=== PATIENT | male | born 1975 | race Caucasian/White ===

== ENCOUNTER 2017-01-30 22:45 | Observation (INO) | payer OTHER ==
[2017-01-30] MEDS ORDERED: Metoprolol Tartrate 5 MG/5 ML SDV IVPUSH ONE (23:00)
[2017-01-30] MEDS ORDERED: Ticagrelor 90 MG Tab PO ONE (23:00)
[2017-01-30] MEDS ORDERED: Aspirin 81 MG Tab.Chew CHEW ONE (23:00)
[2017-01-30] MEDS ORDERED: Famotidine 20 MG/2 ML SDV IVPUSH ONE (23:00)
--- NOTE | 2017-01-30 23:00 | EDM.PDOC ---
ED HPI GENERAL MEDICAL PROBLEM - General Chief Complaint: Chest Pain Stated Complaint: CP, muscle aches, HTN Time Seen by Provider: 01/30/17 22:55 Source of Information: Reports: Patient, Family (), Old Records ([facility] chart/EMR) History Limitations: Reports: No Limitations - History of Present Illness INITIAL COMMENTS - FREE TEXT/NARRATIVE: The patient was brought to the emergency via private automobile by his for evaluation of 10/10 intermittent sharp retrosternal chest pain without radiation with symptoms lasting only a few seconds and starting at about 16:30 hours afternoon. The patient denies any other chest pain/pressure, heart flutter , dizziness, orthostasis, orthopnea, diaphoresis, paresthesias, or any other anginal-type symptoms, although his blood pressure was elevated at home in the 170s/110s. No history visual changes, diplopia, change in mental status, or other change in neurological status, however he has been having to nonspecific intermittent headaches in the occipital regions bilaterally radiating forward. He has also had problems with bilateral arm paresthesias and myalgias during the last few weeks with patient seen at the [facility] in [place] on 01/28 and prescribed Lyrica at that time, although he just started that at noon today. He has also complained of some nonspecific generalized muscle weakness during the last couple of years. The patient has had an unintentional 20 pounds during the last year with somewhat decreased exercise tolerance since that time. He has also had some intermittent heartburn during the last couple of weeks with possible additional dysphagia with symptoms improved with OTC and acids. No recent history of other abdominal pain, nausea, diarrhea, melena, gross hematochezia, or any food intolerance, including fatty foods, etc.. The patient also denies any recent fever, cough, wheezing, dyspnea, etc.. He has not taken any medications for his symptoms today, however. Onset: Today, Sudden Onset Date: 01/30/17 Onset Time: 16:30 Duration: Getting Worse, Intermittent Location: Reports: Head, Chest, Upper Extremity, Left, Upper Extremity, Right, Lower Extremity, Left, Lower Extremity, Right. Denies: Neck, Back, Radiates to Quality: Reports: Same as Previous Episode, Sharp Severity: Severe Improves with: Reports: None Worsens with: Reports: None Context: Reports: Other (As above) Associated Symptoms: Reports: Chest Pain, Headaches, Weakness. Denies: Confusion, Cough, Diaphoresis, Fever/Chills, Loss of Appetite, Malaise, Nausea/ Vomiting, Seizure, Shortness of Breath, Syncope Treatments WELDER METAL FAB: Reports: Other Medication(s) (As above) Middle Chest Pain Score (Numeric/FACES): 10 - Related Data Allergies Allergy/AdvReac Type Severity Reaction Status Date / Time No Known Allergies Allergy Verified 01/30/17 22:55 Home Meds: Home Meds Escitalopram [Lexapro] 20 mg PO BEDTIME 01/30/17 [History] Pregabalin [Lyrica] 75 mg PO BID 01/30/17 [History] Calcium Carbonate [Tums] 1,000 mg PO Q2HR PRN 01/31/17 [History] Past Medical History HEENT History: Reports: None. Denies: Allergic Rhinitis, Cataract, Glaucoma, Hard of Hearing, Impaired Vision, Macular Degeneration, Retinal Detachment Cardiovascular History: Reports: None. Denies: Afib, Aneurysm, Arrhythmia, Blood Clots/VTE/DVT, CAD, Heart Failure, Heart Murmur, High Cholesterol, Hypertension, SC, Syncope Respiratory History: Reports: Intubation, Previous. Denies: Asthma, COPD, Intubation, Difficult, PE, Pneumothorax, Sleep Apnea, TB Gastrointestinal History: Reports: None, GERD. Denies: Celiac Disease, Cholelithiasis, Chronic Constipation, Chronic Diarrhea, Fecal Incontinence, Gastritis, GI Bleed, Hepatitis, Inflammatory Bowel Disease, Irritable Bowel Syndrome, Jaundice, Pancreatitis, PUD Genitourinary History: Reports: Renal Calculus, Other (See Below). Denies: BPH , Chronic Renal Insuffiency, STD, Urinary Incontinence, UTI, Recurrent Other Genitourinary History: urolithiasis in about 1996 with spontaneous passage Musculoskeletal History: Reports: Arthritis, Back Pain, Chronic, Osteoarthritis. Denies: Amputation, Fracture, Gout, RA, SLE Neurological History: Reports: Neuropathy, Peripheral. Denies: Cerebral Aneurysms, Concussion, CVA, Headaches, Chronic, Head Trauma, Migraines, MS, Parkinson's, Seizure, TIA Psychiatric History: Reports: Anxiety, Depression. Denies: Abuse, Victim of, ADD, ADHD, Addiction, Psych Hospitalization(s), PTSD, Suicide Attempt, Suicidal Ideation Endocrine/Metabolic History: Reports: None. Denies: Diabetes, Type I, Diabetes , Type II, Hypothyroidism, IDDM Hematologic History: Reports: None. Denies: Anemia, Blood Transfusion(s), Iron Deficiency Immunologic History: Reports: None. Denies: AIDS, HIV, SLE Oncologic (Cancer) History: Reports: None. Denies: Basal Cell Carcinoma, Hodgkin's Lymphoma, Leukemia, Lymphoma, Malignant Melanoma, Non-Hodgkin's Lymphoma, Squamous Cell Carcinoma Dermatologic History: Reports: None. Denies: Eczema, Psoriasis - Infectious Disease History Infectious Disease History: Reports: Chicken Pox. Denies: C-Difficile, Measles , Meningitis, Mononucleosis, MRSA, Mumps, Pertussis (Whooping Cough), Rheumatic Fever, Rubella, Scarlet Fever, Shingles, TB, VRE - Past Surgical History Head Surgeries/Procedures: Reports: None HEENT Surgical History: Reports: Oral Surgery, Other (See Below). Denies: Adenoidectomy, Cataract Surgery, Eye Surgery, Laser Surgery, LASIK, Myringotomy w Tube(s), Naso-Sinus Surgery, Tonsillectomy Other HEENT Surgeries/Procedures: My wisdom 2 upper and lower right sided about age 28 Cardiovascular Surgical History: Reports: None. Denies: Varicose Respiratory Surgical History: Reports: None. Denies: Thoracentesis GI Surgical History: Reports: None. Denies: Appendectomy, Cholecystectomy, Colonoscopy, EGD, Hernia, Abdominal, Hernia, Inguinal, Hernia Repair/Other Male Surgical History: Reports: Circumcision, Other (See Below). Denies: Lithotripsy (ESWL), Renal Calculus, Vasectomy Other Male Surgeries/Procedures: Circumcision as an infant Endocrine Surgical History: Reports: None. Denies: Thyroid Biopsy Neurological Surgical History: Reports: Discectomy, Lumbar Spine, Spinal Fusion , Other (See Below). Denies: C-Spine, Laminectomy, Sacral Spine, Vertebroplasty Other Neurological Surgeries/Procedures: L4-L5 discectomy 2009 with subsequent L4-L5 spinal fusion in 2012 Musculoskeletal Surgical History: Reports: Arthroscopic Knee, Other (See Below) . Denies: Carpal Tunnel, Ganglion Cyst, Joint Replacement, ORIF Other Musculoskeletal Surgeries/Procedures:: Right-sided arthroscopic knee meniscal repair in about 2008, open left knee surgery for bursitis in 2009 Oncologic Surgical History: Reports: None Dermatological Surgical History: Reports: None - Past Imaging History Past Imaging History: Reports: CAT Scan (Lumbar spine in about 2009 and 2012), MRI (knees bilaterally in , MRI of the lumbar spine on 08/29/08, MRI/ myelogram and lumbar spine in 2009 and 2012), Ultrasound (Bilateral breast ultrasound on 11/27/06) Social & Family History - Family History HEENT: Reports: None. Denies: Allergic Rhinitis, Glaucoma, Macular Degeneration , Retinal Detachment Cardiac: Reports: Bypass, CAD, Cardiomyopathy, Heart Failure, High Cholesterol, Hypertension, SC, Pacemaker, PVD/COD, Stent, Other (See Below). Denies: Afib, Aneurysm, Arrhythmia, Blood Clots/VTE/DVT, Heart Murmur, Syncope Other Cardiac Family History: Maternal grandfather with fatal SC and CHF in his 70s with multiple previous MIs with history of multiple CABG, paternal grandfather with fatal SC at age 73, maternal grandmother with pacemaker with fatal SC in her 70s, parents with hyperlipidemia and hypertension, mother with history of SC and PTCA/stent in her 50s, father with and carotid occlusive disease requiring surgery however think in his 60s, brother with hypertension, maternal uncle with fatal SC at age 39 Respiratory: Reports: None. Denies: Asthma, COPD, PE, Pneumothorax, Sleep Apnea GI: Reports: None. Denies: Celiac Disease, Cholelithiasis, Colon Polyps, GERD, GI bleed, Inflammatory Bowel Disease, Irritable Bowel Syndrome, PUD : Reports: None. Denies: Dialysis, Renal Calculus, Renal Disease/ Insufficiency OBGYN: Reports: Endometriosis, Other (See Below). Denies: Recurrent Spontaneous Other OBGYN Family History: Mother with endometriosis Musculoskeletal: Reports: Gout, RA, Other (See Below). Denies: SLE Other Musculoskeletal Family History: Paternal uncle with gout, mother with rheumatoid arthritis Neurological: Reports: CVA, Migraines, Other (See Below). Denies: Cerebral Aneurysms, MS, Parkinson's, Seizure, TIA Other Neurological Family History: Mother with migraine headaches, maternal uncle with fatal CVA in his 60s Psychiatric: Reports: None. Denies: Abuse, Victim of, ADD, ADHD, Anxiety, Depression, Psych Hospitalization(s), PTSD, Suicide Attempt Endocrine/Metabolic: Reports: Diabetes, type II, IDDM, Other (See Below). Denies: Diabetes, Type I, Hypothyroidism Other Endocrine/Metabolic Family History: Parents with IDDM Hematologic: Reports: None. Denies: Anemia, SLE, Transfusion Reaction Immunologic: Reports: None. Denies: AIDS, HIV, SLE Dermatologic: Reports: None. Denies: Eczema, Psoriasis Oncologic: Reports: Breast, Lung, Metastatic, Skin, Other (See Below). Denies: Colon, Hodgkin's Lymphoma, Leukemia, Non-Hodgkin's Lymphoma, Prostate Other Oncologic Family History: Paternal grandmother with fatal metastatic lung cancer in her early 70s with history of tobacco use, maternal grandfather with unknown type of skin cancer, paternal aunt with fatal stomach cancer in her 40s , sister with breast cancer in her late 20s, paternal aunt with breast cancer in her 50s, paternal aunt with breast cancer in her 40s - Tobacco Use Smoking Status *Q: Never Smoker Tobacco Use Within Last Twelve Months: No Smoking Cessation Information Provided To Patient: No Second Hand Smoke Exposure: No Second Hand Smoke Education Provided: No - Caffeine Use Caffeine Use: Reports: Coffee (One cup per day), Soda (3 sodas per day). 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 Denies: Fever, Chills, Fatigue, Night Sweats, Diaphoresis, Decreased Appetite, Weight Loss HEENT: Reports: No Symptoms. Denies: Dental Pain, Ear Discharge, Ear Pain, Eye Discharge, Eye Pain, Glasses, Throat Pain, Throat Swelling, Vision Change Respiratory: Reports: No Symptoms. Denies: Shortness of Breath, Wheezing, Cough Cardiovascular: Reports: Chest Pain, Blood Pressure Problem (Elevated at arrival with no previous history of hypertension). Denies: Claudication, Dyspnea on Exertion, Edema, Lightheadedness, Orthopnea, Palpitations, PND, Syncope Endocrine: Reports: No Symptoms. Denies: Fatigue, High Glucose GI/Abdominal: Reports: Abdominal Pain (GERD with dysphagia as above). Denies: Anorexia, Black Stool, Bloody Stool, Constipation, Diarrhea, Decreased Appetite , Distension, Flatus, Hematochezia, Melena, Nausea, Stool Incontinence, Vomiting : Reports: No Symptoms. Denies: Discharge, Dysuria, Flank Pain, Frequency, Hematuria, Incontinence, Pain, Urgency, Urinary Retention Musculoskeletal: Reports: No Symptoms. Denies: Neck Pain, Shoulder Pain, Arm Pain, Back Pain, Leg Pain Skin: Reports: No Symptoms. Denies: Diaphoresis, Bruising, Wound Neurological: Reports: Headache, Numbness, Paresthesia, Tingling, Weakness. Denies: Confusion, Dizziness, Seizure, Tremors, Trouble Speaking, Difficulty Walking, Gait Disturbance Psychiatric: Reports: No Symptoms. Denies: Agitation, Anxiety, Confusion, Depression, Hallucinations, Homicidal Ideation, Suicidal Ideation Hematologic/Lymphatic: Reports: No Symptoms Immunologic: Reports: No Symptoms ED EXAM, GENERAL - Physical Exam Exam: See Below Exam Limited By: No Limitations General Appearance: Alert, WD/WN, No Apparent Distress, Anxious (Moderate) Eye Exam: Bilateral Eye: EOMI, Normal Inspection (No nystagmus), PERRL Ears: Normal External Exam, Normal Canal, Hearing Grossly Normal, Normal TMs Nose: Normal Inspection, Normal Mucosa, No Blood Throat/Mouth: Normal Lips, Normal Teeth, Normal Gums, Normal Oropharynx, Normal Voice, No Airway Compromise, Dysphagia (Possible by his history when taking Brilinta in the ER). No: Perioral Cyanosis Head: Atraumatic, Normocephalic. No: Facial Swelling, Facial Tenderness, Sinus Tenderness Neck: Normal Inspection, Supple, Non-Tender, Full Range of Motion. No: Carotid Bruit, Lymphadenopathy (L), Lymphadenopathy (R), Thyromegaly Respiratory/Chest: No Respiratory Distress, Lungs Clear, Normal Breath Sounds, No Accessory Muscle Use, Chest Non-Tender. No: Pleural Rub, Retractions Cardiovascular: Normal Peripheral Pulses, Regular Rate, Rhythm, No Edema, No Gallop, No JVD, No Murmur, No Rub. No: Gallop/S3, Gallop/S4, Friction Rub Peripheral Pulses: 2+: Radial (L), Radial (R), Dorsalis Pedis (L), Dorsalis Pedis (R) GI/Abdominal: Normal Bowel Sounds, Soft, Non-Tender, No Organomegaly, No Distention, No Abnormal Bruit, No Mass, Pelvis Stable. No: Guarding (Male) Exam: Deferred Rectal (Males) Exam: Deferred Back Exam: Normal Inspection, Full Range of Motion. No: CVA Tenderness (L), CVA Tenderness (R), Muscle Spasm Extremities: Normal Inspection, Normal Range of Motion, Non-Tender, No Pedal Edema, Normal Capillary Refill. No: Kiara's Sign Neurological: Alert, Oriented, CN II-XII Intact, Normal Cognition, Normal Gait, Normal Reflexes (Negative Babinski's), No Motor/Sensory Deficits Psychiatric: Anxious (Moderate), Depressed Mood (Mild adequate eye contact) Skin Exam: Warm, Dry, Intact, Normal Color, No Rash. No: Diaphoretic, Wound/ Incision Lymphatic: No Adenopathy EKG INTERPRETATION EKG Date: 01/30/17 Time: 22:51 Rhythm: NSR Rate (Beats/Min): 81 [place]: Normal (Neutral cardiac axis) P-Wave: Enlarged (Mild diffuse biphasic P waves) QRS: Normal (QRS interval of 0.08 seconds representing repolarization changes) ST-T: Normal QT: Normal MN/PQ Interval: 0.14 seconds with no delta waves noted Comparison: NA - No Prior EKG EKG Interpretation Comments: 1. No acute ischemic changes 2. Probable left atrial enlargement 3. Repolarization changes 4. Short MN interval Course - Vital Signs Last Recorded V/S: Last Vital Signs Temp 36.8 C 01/30/17 22:45 Pulse 82 01/31/17 00:18 Resp 20 01/31/17 00:18 BP 131/83 01/31/17 00:18 Pulse Ox 99 01/31/17 00:18 Vital Signs - 24 hr 01/30/17 01/30/17 01/30/17 22:45 23:00 23:15 Temperature [ 36.8 C Oral] Pulse, Peripheral Pulse, 78 78 82 Peripheral [ Right Brachial] Respiratory 14 15 17 Rate Blood Pressure Blood Pressure 168/120 H 173/113 H 158/108 H [Right Upper Arm] O2 Sat by Pulse 97 99 99 Oximetry O2 Sat by Pulse 99 Oximetry [ Nasal Cannula] 01/30/17 01/30/17 01/30/17 23:16 23:21 23:30 Temperature [ Oral] Pulse, 84 Peripheral Pulse, 82 Peripheral [ Right Brachial] Respiratory 21 H Rate Blood Pressure 158/108 H 158/108 H Blood Pressure 135/99 H [Right Upper Arm] O2 Sat by Pulse 100 Oximetry O2 Sat by Pulse Oximetry [ Nasal Cannula] 01/30/17 01/31/17 01/31/17 23:47 00:00 00:08 Temperature [ Oral] Pulse, 72 Peripheral Pulse, 85 82 Peripheral [ Right Brachial] Respiratory 15 20 Rate Blood Pressure 137/101 H Blood Pressure 133/109 H 137/101 H [Right Upper Arm] O2 Sat by Pulse 99 98 Oximetry O2 Sat by Pulse Oximetry [ Nasal Cannula] 01/31/17 01/31/17 00:09 00:18 Temperature [ Oral] Pulse, Peripheral Pulse, 82 Peripheral [ Right Brachial] Respiratory 20 Rate Blood Pressure 137/101 H Blood Pressure 131/83 [Right Upper Arm] O2 Sat by Pulse 99 Oximetry O2 Sat by Pulse Oximetry [ Nasal Cannula] - Orders/Labs/Meds Orders: Active Orders 24 hr Category Date Time Status Cardiac Monitoring [RC] . DIRECTED Care 01/30/17 23:00 Active EKG Documentation Completion [RC] ASDIRECTED Care 01/30/17 23:00 Active Oxygen Therapy, ED [RC] CONTINUOUS Care 01/30/17 23:00 Active Peripheral IV Care [RC] . DIRECTED Care 01/30/17 23:00 Active Pulse Oximetry [RC] CONTINUOUS Care 01/30/17 23:00 Active Up With Assistance [RC] PFP Care 01/30/17 23:00 Active Vital Signs [RC] PFP Care 01/30/17 23:00 Active Nothing per Oral Now Diet [DIET] Diet 01/30/17 Breakfast Active Chest 1V Frontal [CR] Stat Exams 01/30/17 23:00 Taken Nitroglycerin [Nitrostat] Med 01/30/17 23:04 Stat 0.4 mg SL ONETIME STA Sodium Chloride 0.9% [Saline Flush] Med 01/30/17 23:00 Active 10 ml FLUSH ASDIRECTED PRN Obtain Past Medical Record [OM.PC] Urgent Oth 01/30/17 23:00 Active Peripheral IV Insertion Adult [OM.PC] Stat Oth 01/30/17 23:00 Ordered Resuscitation Status Stat Resus Stat 01/30/17 23:00 Ordered Medication Orders Nitroglycerin (Nitrostat) 0.4 mg SL ONETIME STA Stop: 01/31/17 23:05 Last Admin: 01/30/17 23:21 Dose: 0.4 mg Nitroglycerin (Nitrostat) 0.4 mg SL ONETIME STA Stop: 02/01/17 00:01 Last Admin: 01/31/17 00:09 Dose: 0.4 mg Sodium Chloride (Saline Flush) 10 ml FLUSH ASDIRECTED PRN PRN Reason: Keep Vein Open Last Admin: 01/30/17 23:23 Dose: 10 ml Admin: 01/30/17 23:21 Dose: 10 ml Labs: Laboratory Tests 01/30/17 01/30/17 01/30/17 Range/Units 23:00 23:00 23:00 WBC 9.7 (4.0-10.2) K/uL RBC 4.86 (4.33-5.41) M/uL Hgb 15.5 (13.1-16.8) g/dL Hct 43.5 (39.0-49.0) % MCV 89.5 (84.0-98.0) fL MCH 31.9 (28.2-33.3) pg MCHC 35.6 (31.7-36.0) g/dL RDW 12.5 (11.2-14.1) % Plt Count 298 (150-350) K/uL Neut % (Auto) 48.0 (45.0-80.0) % Lymph % (Auto) 37.8 (10.0-50.0) % [place] % (Auto) 10.7 (2.0-14.0) % Eos % (Auto) 3.0 (0.0-5.0) % Baso % (Auto) 0.5 (0.0-2.0) % Neut # (Auto) 4.67 (1.40-7.00) K/uL Lymph # (Auto) 3.67 H (0.50-3.50) K/uL [place] # (Auto) 1.04 H (0.00-1.00) K/uL Eos # (Auto) 0.29 (0.00-0.50) K/uL Baso # (Auto) 0.05 (0.00-0.20) K/uL PT 10.5 (9.8-11.7) SEC INR 1.0 APTT 26.4 (23.5-30.0) SEC D-Dimer, Quantitative < 100 (0-400) ng/mL Sodium (136-145) mmol/L Potassium (3.5-5.1) mmol/L Chloride (98-107) mmol/L Carbon Dioxide (21.0-32.0) mmol/L BUN (7-18) mg/dL Creatinine (0.51-1.17) mg/dL Est Cr Clr Drug Dosing mL/min Estimated GFR (MDRD) mL/min Glucose (74-106) mg/dL Lactic Acid (0.4-2.0) mmol/L Uric Acid (2.6-7.2) mg/dL Calcium (8.5-10.1) mg/dL Magnesium (1.8-2.4) mg/dL Total Bilirubin (0.2-1.0) mg/dL AST (15-37) U/L ALT (12-78) U/L Alkaline Phosphatase (46-116) IU/L Creatine Kinase (26-308) U/L Creatine Kinase Index (0.0-2.5) % CK-MB (CK-2) (0.00-3.60) ng/mL Troponin I (0.000-0.056) ng/mL [id number] Pept (0-125) pg/mL Total Protein (6.4-8.2) g/dL Albumin (3.4-5.0) g/dL TSH, Ultra Sensitive (0.358-3.740) mIU/mL 01/30/17 01/30/17 Range/Units 23:00 23:00 WBC (4.0-10.2) K/uL RBC (4.33-5.41) M/uL Hgb (13.1-16.8) g/dL Hct (39.0-49.0) % MCV (84.0-98.0) fL MCH (28.2-33.3) pg MCHC (31.7-36.0) g/dL RDW (11.2-14.1) % Plt Count (150-350) K/uL Neut % (Auto) (45.0-80.0) % Lymph % (Auto) (10.0-50.0) % [place] % (Auto) (2.0-14.0) % Eos % (Auto) (0.0-5.0) % Baso % (Auto) (0.0-2.0) % Neut # (Auto) (1.40-7.00) K/uL Lymph # (Auto) (0.50-3.50) K/uL [place] # (Auto) (0.00-1.00) K/uL Eos # (Auto) (0.00-0.50) K/uL Baso # (Auto) (0.00-0.20) K/uL PT (9.8-11.7) SEC INR APTT (23.5-30.0) SEC D-Dimer, Quantitative (0-400) ng/mL Sodium 143 (136-145) mmol/L Potassium 3.8 (3.5-5.1) mmol/L Chloride 106 (98-107) mmol/L Carbon Dioxide 27.5 (21.0-32.0) mmol/L BUN 12 (7-18) mg/dL Creatinine 0.95 (0.51-1.17) mg/dL Est Cr Clr Drug Dosing 76.63 mL/min Estimated GFR (MDRD) > 60 mL/min Glucose 134 H (74-106) mg/dL Lactic Acid 1.6 (0.4-2.0) mmol/L Uric Acid 6.3 (2.6-7.2) mg/dL Calcium 9.0 (8.5-10.1) mg/dL Magnesium 1.8 (1.8-2.4) mg/dL Total Bilirubin 0.3 (0.2-1.0) mg/dL AST 22 (15-37) U/L ALT 58 (12-78) U/L Alkaline Phosphatase 82 (46-116) IU/L Creatine Kinase 93 (26-308) U/L Creatine Kinase Index 0.5 (0.0-2.5) % CK-MB (CK-2) 0.50 (0.00-3.60) ng/mL Troponin I 0.000 (0.000-0.056) ng/mL Sax-P-Todhkaanzlm Pept 24 (0-125) pg/mL Total Protein 7.9 (6.4-8.2) g/dL Albumin 4.1 (3.4-5.0) g/dL TSH, Ultra Sensitive 4.217 H (0.358-3.740) mIU/mL Meds: Medications Generic Name Dose Route Start Last Admin Trade Name Mar PRN Reason Stop Dose Admin Nitroglycerin 0.4 mg 01/30/17 23:04 01/30/17 23:21 Nitrostat SL 01/31/17 23:05 0.4 mg ONETIME STA Administration Nitroglycerin 0.4 mg 01/31/17 00:00 01/31/17 00:09 Nitrostat SL 02/01/17 00:01 0.4 mg ONETIME STA Administration Sodium Chloride 10 ml 01/30/17 23:00 01/30/17 23:23 Saline Flush FLUSH 10 ml ASDIRECTED PRN Administration Keep Vein Open Discontinued Medications Generic Name Dose Route Start Last Admin Trade Name Mar PRN Reason Stop Dose Admin Aspirin 324 mg 01/30/17 23:00 01/30/17 23:18 Aspirin CHEW 01/30/17 23:01 324 mg ONETIME ONE Administration Diazepam 2.5 mg 01/30/17 23:04 01/30/17 23:24 Valium IVPUSH 01/30/17 23:05 2.5 mg ONETIME ONE Administration Famotidine 40 mg 01/30/17 23:00 01/30/17 23:22 Pepcid IVPUSH 01/30/17 23:01 40 mg ONETIME ONE Administration Metoprolol Tartrate 2.5 mg 01/30/17 23:00 01/30/17 23:16 Lopressor IVPUSH 01/30/17 23:01 2.5 mg ONETIME ONE Administration Metoprolol Tartrate 25 mg 01/31/17 00:00 01/31/17 00:08 Lopressor PO 01/31/17 00:01 25 mg ONETIME ONE Administration Ticagrelor 180 mg 01/30/17 23:00 01/30/17 23:19 Brilinta PO 01/30/17 23:01 180 mg ONETIME ONE Administration - Radiology Interpretation Free Text/Narrative:: cardiac monitor technician shows normal sinus rhythm with heart rate in the 80s with no ectopy or arrhythmia Chest x-ray, portable, shows evidence of mild pulmonary obstructive disease and probable pulmonary hypertension versus mild centralized CHF. No pulmonary infiltrates, pneumothorax, etc.. Mild cardiomegaly also present Departure - Departure Time of Disposition: 00:20 Disposition: Refer to Observation Condition: Good Clinical Impression: Bilateral headaches, Mixed anxiety depressive disorder, COPD (chronic obstructive pulmonary disease) Chest pain Qualifiers: Chest pain type: unspecified Qualified Code(s): R07.9 - Chest pain, unspecified Hypertension Qualifiers: Hypertension type: essential hypertension Qualified Code(s): I10 - Essential ( primary) hypertension GERD (gastroesophageal reflux disease) Qualifiers: Esophagitis presence: without esophagitis Qualified Code(s): K21.9 - Gastro- esophageal reflux disease without esophagitis Dysphagia Qualifiers: Dysphagia type: oropharyngeal phase Qualified Code(s): R13.12 - Dysphagia, oropharyngeal phase Peripheral neuropathy Qualifiers: Peripheral neuropathy type: polyneuropathy, other Qualified Code(s): G62.89 - Other specified polyneuropathies Hypothyroidism Qualifiers: Hypothyroidism type: acquired Qualified Code(s): E03.9 - Hypothyroidism, unspecified - Problem List & Annotations (1) Chest pain SNOMED Code(s): 52920590 Code(s): R07.9 - CHEST PAIN, UNSPECIFIED Status: Acute Priority: High Current Visit: Yes Onset Date: 01/31/17 Annotation/Comment:: Chest pain protocol initiated immediately upon arrival to the patient in the emergency room. No chest pain at time of admission. EKG and cardiac enzymes to be repeated in the a.m. Recommend additional serial cardiac enzymes tomorrow with probable subsequent hospital discharge. Patient should have a Cardiolite stress test on an outpatient basis secondary to his multiple cardiac risk factors with activity restrictions until his cardiac status has been determined. Cardiology consultation depending on his clinical course. Lipid panel and glycosylated hemoglobin to be conducted in the a.m. with mildly elevated nonfasting glucose today Qualifiers: Chest pain type: unspecified Qualified Code(s): R07.9 - Chest pain, unspecified (2) Hypertension SNOMED Code(s): 13640381 Code(s): I10 - ESSENTIAL (PRIMARY) HYPERTENSION Status: Acute Priority: High Current Visit: Yes Onset Date: 01/31/17 Annotation/Comment:: Newly diagnosed with somewhat refractory blood pressure during emergency room evaluation. Medical therapy recommended at discharge with initiation of Lopressor for the time being. Sublingual nitroglycerin tablets were needed to better control his blood pressure with no anginal complaints during his ER care. He did receive both IV and oral Lopressor in the emergency room Qualifiers: Hypertension type: essential hypertension Qualified Code(s): I10 - Essential (primary) hypertension (3) GERD (gastroesophageal reflux disease) SNOMED Code(s): 095108104 Code(s): K21.9 - GASTRO-ESOPHAGEAL REFLUX DISEASE WITHOUT ESOPHAGITIS Status: Chronic Priority: Medium Current Visit: Yes Annotation/Comment:: Recent GERD as above with additional secondary dysphagia. He does IV Pepcid given in the emergency room as GI prophylaxis with consideration of regularly scheduled Pepcid discharge. Patient should also have an EGD with probable esophageal dilatation once his cardiac status has been determined Qualifiers: Esophagitis presence: without esophagitis Qualified Code(s): K21.9 - Gastro -esophageal reflux disease without esophagitis (4) Bilateral headaches SNOMED Code(s): 213516738 Code(s): R51 - HEADACHE Status: Chronic Priority: High Current Visit: Yes Annotation/Comment:: Note new nonspecific headaches during the last few weeks with additional nonspecific generalized muscle weakness. Consider CT of the head when necessary depending on his clinical course. Otherwise recommend MRI of the brain to rule out possible MS. No neurological deficits during examination in the emergency room (5) Dysphagia SNOMED Code(s): 32652962, 559267621 Code(s): R13.10 - DYSPHAGIA, UNSPECIFIED Status: Chronic Priority: Medium Current Visit: Yes Annotation/Comment:: As above Qualifiers: Dysphagia type: oropharyngeal phase Qualified Code(s): R13.12 - Dysphagia, oropharyngeal phase (6) Hypothyroidism SNOMED Code(s): 65930233 Code(s): E03.9 - HYPOTHYROIDISM, UNSPECIFIED Status: Acute Priority: Medium Current Visit: Yes Onset Date: 01/31/17 Annotation/Comment:: Newly diagnosed borderline hypothyroidism. Low-dose L thyroxine to be initiated tomorrow with recommended repeat TSH in about 4 weeks Qualifiers: Hypothyroidism type: acquired Qualified Code(s): E03.9 - Hypothyroidism, unspecified (7) Mixed anxiety depressive disorder SNOMED Code(s): 049337513 Code(s): F41.8 - OTHER SPECIFIED ANXIETY DISORDERS Status: Chronic Priority: Medium Current Visit: Yes Annotation/Comment:: IV diazepam given in the emergency room. He has been noncompliant with his Lexapro therapy with medication compliance encouraged. He has also been having problems with some chronic insomnia during the last week. Continue to observe closely by his regular provider (8) Peripheral neuropathy SNOMED Code(s): 317719571 Code(s): G62.9 - POLYNEUROPATHY, UNSPECIFIED Status: Chronic Priority: High Current Visit: Yes Annotation/Comment:: The patient just started Lyrica today. Continue therapy for now with close observation by his regular provider Qualifiers: Peripheral neuropathy type: polyneuropathy, other Qualified Code(s): G62.89 - Other specified polyneuropathies (9) COPD (chronic obstructive pulmonary disease) SNOMED Code(s): 14334512 Code(s): J44.9 - CHRONIC OBSTRUCTIVE PULMONARY DISEASE, UNSPECIFIED Status : Chronic Priority: Medium Current Visit: Yes Onset Date: ~01/31/17 Annotation/Comment:: Suspected COPD by today's chest x-ray. Consider PFTs on an outpatient basis Qualifiers: COPD type: emphysema Emphysema type: panlobular Qualified Code(s): J43.1 - Panlobular emphysema (10) Osteoarthritis SNOMED Code(s): 400211359 Code(s): M19.90 - UNSPECIFIED OSTEOARTHRITIS, UNSPECIFIED SITE Status: Chronic Priority: Medium Current Visit: Yes Annotation/Comment:: Otherwise stable by history Qualifiers: Osteoarthritis location: multiple joints Osteoarthritis type: primary Qualified Code(s): M15.0 - Primary generalized (osteo)arthritis - Problem List Review Problem List Initiated/Reviewed/Updated: Yes - My Orders Last 24 Hours: My Active Orders 01/30/17 23:00 Cardiac Monitoring [RC] . DIRECTED EKG Documentation Completion [RC] ASDIRECTED Oxygen Therapy, ED [RC] CONTINUOUS Peripheral IV Care [RC] . DIRECTED Pulse Oximetry [RC] CONTINUOUS Up With Assistance [RC] PFP Vital Signs [RC] PFP Chest 1V Frontal [CR] Stat Sodium Chloride 0.9% [Saline Flush] 10 ml FLUSH ASDIRECTED PRN Obtain Past Medical Record [OM.PC] Urgent Peripheral IV Insertion Adult [OM.PC] Stat Resuscitation Status Stat 01/30/17 23:04 Nitroglycerin [Nitrostat] 0.4 mg SL ONETIME STA 01/30/17 Breakfast Nothing per Oral Now Diet [DIET] - Assessment/Plan Admission H&P: Please use this note as an admission H&P Last 24 Hours: My Active Orders 01/30/17 23:00 Cardiac Monitoring [RC] . DIRECTED EKG Documentation Completion [RC] ASDIRECTED Oxygen Therapy, ED [RC] CONTINUOUS Peripheral IV Care [RC] . DIRECTED Pulse Oximetry [RC] CONTINUOUS Up With Assistance [RC] PFP Vital Signs [RC] PFP Chest 1V Frontal [CR] Stat Sodium Chloride 0.9% [Saline Flush] 10 ml FLUSH ASDIRECTED PRN Obtain Past Medical Record [OM.PC] Urgent Peripheral IV Insertion Adult [OM.PC] Stat Resuscitation Status Stat 01/30/17 23:04 Nitroglycerin [Nitrostat] 0.4 mg SL ONETIME STA 01/30/17 Breakfast Nothing per Oral Now Diet [DIET] Assessment:: As above Plan: As above. Extensive precautions were given to the patient and his , who are in agreement with the treatment plan. [facility] physician assumes care in the a.m.. The patient's condition is stable enough for observation status and general supervision.
[2017-01-30] MEDS ORDERED: Nitroglycerin 0.4 MG Tab.SL SL STA (23:04)
[2017-01-30] MEDS: Sodium Chloride 0.9% 10 ML Syringe FLUSH PRN ×2 (23:21→23:23)
[2017-01-30 23:31] LABS: CHLORIDE,CL 106 mmol/L (98-107); SODIUM,NA 143 mmol/L (136-145)
[2017-01-31] MEDS ORDERED: Nitroglycerin 0.4 MG Tab.SL SL STA
[2017-01-31] MEDS ORDERED: Metoprolol Tartrate 50 MG Tab PO ONE
[2017-01-31] MEDS ORDERED: Escitalopram 20 MG Tab PO SCH (00:25)
[2017-01-31] MEDS ORDERED: Temazepam 15 MG Cap PO PRN (00:26)
[2017-01-31] MEDS ORDERED: Acetaminophen 325 MG Tab PO PRN (00:26)
[2017-01-31] MEDS ORDERED: Sodium Chloride 0.9% 10 ML Syringe FLUSH PRN (00:26)
[2017-01-31] MEDS ORDERED: Levothyroxine 50 MCG Tab PO SCH (07:30)
[2017-01-31] MEDS ORDERED: Pregabalin 75 MG Cap PO SCH (08:00)
[2017-01-31] MEDS ORDERED: Metoprolol Tartrate 50 MG Tab PO SCH (08:00)
[2017-01-31] MEDS ORDERED: Metoprolol Tartrate 25 MG Tab PO ONE (11:13)
[2017-01-31 14:11] VITALS: BP 149/85
--- NOTE | 2017-01-31 15:07 | PCM.DCSUM1 ---
Discharge Summary - Discharge Data Discharge Date: 01/31/17 Discharge Disposition: Home, Self-Care 01 Condition: Good - Discharge Diagnosis/Problem(s) (1) Chest pain SNOMED Code(s): 62465971 ICD Code: R07.9 - CHEST PAIN, UNSPECIFIED Status: Acute Priority: High Current Visit: Yes Onset Date: 01/31/17 Problem Details: Cardiolite stress test scheduled for next . EKG and cardiac labs were unremarkable for [facility]/ cardiac injury. Qualifiers: Chest pain type: unspecified Qualified Code(s): R07.9 - Chest pain, unspecified (2) Hypertension SNOMED Code(s): 74433852 ICD Code: I10 - ESSENTIAL (PRIMARY) HYPERTENSION Status: Acute Priority: High Current Visit: Yes Onset Date: 01/31/17 Problem Details: Newly diagnosed with somewhat refractory blood pressure during emergency room evaluation. Medical therapy recommended at discharge with initiation of Lopressor for the time being. Sublingual nitroglycerin tablets were needed to better control his blood pressure with no anginal complaints during his ER care. He did receive both IV and oral Lopressor in the emergency room Qualifiers: Hypertension type: essential hypertension Qualified Code(s): I10 - Essential (primary) hypertension (3) Hypothyroidism SNOMED Code(s): 24589001 ICD Code: E03.9 - HYPOTHYROIDISM, UNSPECIFIED Status: Acute Priority: Medium Current Visit: Yes Onset Date: 01/31/17 Problem Details: Newly diagnosed borderline hypothyroidism. Low-dose L thyroxine to be initiated tomorrow with recommended repeat TSH in about 4 weeks Qualifiers: Hypothyroidism type: acquired Qualified Code(s): E03.9 - Hypothyroidism, unspecified (4) Bilateral headaches SNOMED Code(s): 504692065 ICD Code: R51 - HEADACHE Status: Chronic Priority: High Current Visit: Yes Problem Details: Note new nonspecific headaches during the last few weeks with additional nonspecific generalized muscle weakness. Consider CT of the head when necessary depending on his clinical course. Otherwise recommend MRI of the brain to rule out possible MS. No neurological deficits during examination in the emergency room (5) COPD (chronic obstructive pulmonary disease) SNOMED Code(s): 68558006 ICD Code: J44.9 - CHRONIC OBSTRUCTIVE PULMONARY DISEASE, UNSPECIFIED Status : Chronic Priority: Medium Current Visit: Yes Onset Date: ~01/31/17 Problem Details: Suspected COPD by today's chest x-ray. Consider PFTs on an outpatient basis Qualifiers: COPD type: emphysema Emphysema type: panlobular Qualified Code(s): J43.1 - Panlobular emphysema (6) Dysphagia SNOMED Code(s): 86864943, 001507992 ICD Code: R13.10 - DYSPHAGIA, UNSPECIFIED Status: Chronic Priority: Medium Current Visit: Yes Problem Details: As above Qualifiers: Dysphagia type: oropharyngeal phase Qualified Code(s): R13.12 - Dysphagia, oropharyngeal phase (7) GERD (gastroesophageal reflux disease) SNOMED Code(s): 932828826 ICD Code: K21.9 - GASTRO-ESOPHAGEAL REFLUX DISEASE WITHOUT ESOPHAGITIS Status: Chronic Priority: Medium Current Visit: Yes Problem Details: Recent GERD as above with additional secondary dysphagia. He does IV Pepcid given in the emergency room as GI prophylaxis with consideration of regularly scheduled Pepcid discharge. Patient should also have an EGD with probable esophageal dilatation once his cardiac status has been determined Qualifiers: Esophagitis presence: without esophagitis Qualified Code(s): K21.9 - Gastro -esophageal reflux disease without esophagitis (8) Mixed anxiety depressive disorder SNOMED Code(s): 326493565 ICD Code: F41.8 - OTHER SPECIFIED ANXIETY DISORDERS Status: Chronic Priority: Medium Current Visit: Yes Problem Details: IV diazepam given in the emergency room. He has been noncompliant with his Lexapro therapy with medication compliance encouraged. He has also been having problems with some chronic insomnia during the last week. Continue to observe closely by his regular provider (9) Osteoarthritis SNOMED Code(s): 325799450 ICD Code: M19.90 - UNSPECIFIED OSTEOARTHRITIS, UNSPECIFIED SITE Status: Chronic Priority: Medium Current Visit: Yes Problem Details: Otherwise stable by history Qualifiers: Osteoarthritis location: multiple joints Osteoarthritis type: primary Qualified Code(s): M15.0 - Primary generalized (osteo)arthritis (10) Peripheral neuropathy SNOMED Code(s): 762243004 ICD Code: G62.9 - POLYNEUROPATHY, UNSPECIFIED Status: Chronic Priority: High Current Visit: Yes Problem Details: The patient just started Lyrica today. Continue therapy for now with close observation by his regular provider Qualifiers: Peripheral neuropathy type: polyneuropathy, other Qualified Code(s): G62.89 - Other specified polyneuropathies - Patient Summary/Data Recommended Follow-up Testing/Procedures: Upper endoscopy to look at esophagus/stomach given complaints of heartburn and episodic difficulty swallowing. Cardiac stress test: schedule for next Friday here at [facility]. Follow up with primary to discuss of brain MRI appropriate and also for follow up of hypothyroidism. Hospital Course: Patient admitted for observation after initially being evaluated in the ER. Serial troponins and CKMB performed. Unremarkable. Repeat EKG showed NSR. Chest pain remained resolved. Continued to have generalized aches arms/legs which have been present for several weeks. Patient has chronic issues with soreness due to arthritis. He quit drinking soda around the same time the aches escalated and wondered if that may have been connected. Uncertain as to specific cause at this time. Tick panel added to labs. Patient will be discharged home. He was encouraged to continue the Lyrica as well as Lexapro. Will add Metoprolol , Pepcid, and thyroid replacement to regimen at time of discharge. Patient is to follow up with primary provider within the next week or two. At that time he can review his visit here with his primary, and also discuss possible other studies, such as MRI of brain, EGD for dysphagia. He will need follow up studies for thyroid replacement. Stress test scheduled for next . Extensive amount of time spent visiting with patient and discussing lifestyle change strategies for diet and activity that may help address his multiple issues. - Patient Instructions Diet: Heart Healthy Diet Activity: As Tolerated Driving: May Drive Today Showering/Bathing: May Shower - Discharge Plan Home Medications: Home Meds Escitalopram [Lexapro] 20 mg PO BEDTIME 01/30/17 [History] Pregabalin [Lyrica] 75 mg PO BID 01/30/17 [History] Calcium Carbonate [Tums] 1,000 mg PO Q2HR PRN 01/31/17 [History] Patient Handouts: Aspirin, ASA chewable tablets, Exercise Stress Electrocardiogram, [id number], Metoprolol tablets, Ticagrelor oral tablet, Diazepam injection, Famotidine injection, Nonspecific Chest Pain, [id number], Hypertension, [id number], Nitroglycerin sublingual tablets, Metoprolol injection Forms: ED Department Discharge Referrals: Sander Greenberg PA [Primary Care Provider] - - Discharge Summary/Plan Comment DC Time >30 min.: No - General Info Date of Service: 01/31/17 Admission Dx/Problem (Free Text: Chest pain rule out. Arthralgias. Functional Status: Reports: Pain Controlled, Tolerating Diet, Ambulating, Urinating. Denies: New Symptoms - Review of Systems General: Reports: No Symptoms HEENT: Reports: No Symptoms Pulmonary: Reports: No Symptoms. Denies: Shortness of Breath, Cough, Sputum, Hemoptysis, Wheezing Cardiovascular: Reports: No Symptoms. Denies: Chest Pain, Palpitations Gastrointestinal: Reports: No Symptoms Genitourinary: Reports: No Symptoms Musculoskeletal: Reports: Joint Swelling (Patient feels that his hands are a little puffy. ), Other (generalized aches arms/legs. ) Skin: Reports: No Symptoms Neurological: Reports: Numbness (Has chronic peripheral paresthesias. ). Denies : Headache Psychiatric: Reports: No Symptoms - Patient Data Vitals - Most Recent: Last Vital Signs Temp 36.7 C 01/31/17 14:00 Pulse 69 01/31/17 14:00 Resp 16 01/31/17 14:00 BP 149/85 H 01/31/17 14:00 Pulse Ox 97 01/31/17 10:05 Weight - Most Recent: 82.735 kg I&O - Last 24 hours: Intake & Output 01/31/17 01/31/17 01/31/17 06:59 14:59 22:59 Intake Total 0 420 Output Total 700 Balance -700 420 Lab Results - Last 24 hrs: Laboratory Results - last 24 hr 01/31/17 01/31/17 01/31/17 Range/Units 06:28 06:28 10:55 Hemoglobin A1c 5.4 (4.3-5.7) % Creatine Kinase 77 80 (26-308) U/L Creatine Kinase Index 0.4 0.5 (0.0-2.5) % CK-MB (CK-2) 0.30 0.40 (0.00-3.60) ng/mL Troponin I 0.000 0.000 (0.000-0.056) ng/mL Triglycerides 267 H (30-150) mg/dL Cholesterol 180 (100-200) mg/dL LDL Cholesterol, Calc 92 (0-100) mg/dL HDL Cholesterol 35 L (40-60) mg/dL [facility] Results - Last 24 hrs: Microbiology 01/31/17 11:24 Stool Occult Blood ([facility]) - Final Stool / Feces NEGATIVE OCCULT BLOOD Med Orders - Current: Current Medications Acetaminophen (Tylenol) 650 mg PO Q4H PRN PRN Reason: Pain Last Admin: 01/31/17 00:47 Dose: 650 mg Escitalopram Oxalate (Lexapro) 20 mg PO BEDTIME [facility] Last Admin: 01/31/17 00:48 Dose: 20 mg Levothyroxine Sodium (Synthroid) 50 mcg PO ACBREAKFAST [facility] Last Admin: 01/31/17 08:26 Dose: 50 mcg Metoprolol Tartrate (Lopressor) 25 mg PO BID [facility] Last Admin: 01/31/17 08:26 Dose: 25 mg Nitroglycerin (Nitrostat) 0.4 mg SL ONETIME STA Stop: 01/31/17 23:05 Last Admin: 01/30/17 23:21 Dose: 0.4 mg Nitroglycerin (Nitrostat) 0.4 mg SL ONETIME STA Stop: 02/01/17 00:01 Last Admin: 01/31/17 00:09 Dose: 0.4 mg Pregabalin (Lyrica) 75 mg PO BID [facility] Last Admin: 01/31/17 08:27 Dose: 75 mg Sodium Chloride (Saline Flush) 10 ml FLUSH ASDIRECTED PRN PRN Reason: Keep Vein Open Last Admin: 01/30/17 23:23 Dose: 10 ml Sodium Chloride (Saline Flush) 10 ml FLUSH Q12HR PRN PRN Reason: Keep Vein Open Temazepam (Restoril) 15 mg PO BEDTIME PRN PRN Reason: Insomnia Last Admin: 01/31/17 00:48 Dose: 15 mg Discontinued Medications Aspirin (Aspirin) 324 mg CHEW ONETIME ONE Stop: 01/30/17 23:01 Last Admin: 01/30/17 23:18 Dose: 324 mg Diazepam (Valium) 2.5 mg IVPUSH ONETIME ONE Stop: 01/30/17 23:05 Last Admin: 01/30/17 23:24 Dose: 2.5 mg Famotidine (Pepcid) 40 mg IVPUSH ONETIME ONE Stop: 01/30/17 23:01 Last Admin: 01/30/17 23:22 Dose: 40 mg Metoprolol Tartrate (Lopressor) 2.5 mg IVPUSH ONETIME ONE Stop: 01/30/17 23:01 Last Admin: 01/30/17 23:16 Dose: 2.5 mg Metoprolol Tartrate (Lopressor) 25 mg PO ONETIME ONE Stop: 01/31/17 00:01 Last Admin: 01/31/17 00:08 Dose: 25 mg Metoprolol Tartrate (Lopressor) 25 mg PO ONETIME ONE Stop: 01/31/17 11:14 Last Admin: 01/31/17 11:33 Dose: 25 mg Ticagrelor (Brilinta) 180 mg PO ONETIME ONE Stop: 01/30/17 23:01 Last Admin: 01/30/17 23:19 Dose: 180 mg - Exam Quality Assessment: Denies: Supplemental Oxygen General: Reports: Alert, Oriented, Cooperative, No Acute Distress HEENT: Reports: Pupils Equal, Pupils Reactive, EOMI, Mucous Membr. Moist/[place] Neck: Reports: Supple Lungs: Reports: Clear to Auscultation, Normal Respiratory Effort Cardiovascular: Reports: Regular Rate, Regular Rhythm GI/Abdominal Exam: Normal Bowel Sounds, Soft, Non-Tender, No Distention, No Abnormal Bruit (Male) Exam: Deferred Rectal (Males) Exam: Deferred Back Exam: Reports: Normal Inspection Extremities: Normal Inspection, Normal Range of Motion, Non-Tender, No Pedal Edema, Normal Capillary Refill Skin: Reports: Warm, Dry Neurological: Reports: No New Focal Deficit Psy/Mental Status: Reports: Alert, Normal Affect, Normal Mood EKG INTERPRETATION EKG Date: 01/31/17 Time: 07:39 Rhythm: NSR Rate (Beats/Min): 63 [place]: Normal P-Wave: Present QRS: Normal ST-T: Normal QT: Normal Comparison: No Change *Q Meaningful Use (DIS) - VTE *Q VTE Criteria *Q: - Stroke *Q Stroke Criteria *Q: - AMI *Q AMI Criteria *Q:
[2017-01-31] MEDS ORDERED: traMADol 50 MG Tab PO ONE (15:09)
== END 2017-01-31 16:10 | disposition home or self-care (01) ==
LOC: LL.ED 22:45 → LL.MS 23:55 → MERGE 23:55
PROVIDERS: ADMIT Family Medicine; ATTEND Emergency Medicine
DX: R07.9 Chest pain, unspecified (principal); I10 Essential (primary) hypertension; E03.9 Hypothyroidism, unspecified; R51 Headache; J43.1 Panlobular emphysema; R13.12 Dysphagia, oropharyngeal phase; K21.9 Gastro-esophageal reflux disease without esophagitis; F41.8 Other specified anxiety disorders; M15.0 Primary generalized (osteo)arthritis; G62.89 Other specified polyneuropathies; Z79.899 Other long term (current) drug therapy; Z98.890 Other specified postprocedural states
CPT/HCPCS: 36415; 71010; 80053; 80061; 82272; 82550; 82553; 83036; 83605; 83735; 83880; 84443; 84484; 84550; 85025; 85379; 85610; 85730; 86618; 87338; 93005; 96374; 96375; 99285; A9270; J3360; J7050; G0378; J3490; S0028

== ENCOUNTER 2019-12-27 23:02 | Observation (INO) | payer OTHER ==
[2019-12-27] MEDS ORDERED: Ketorolac 30 MG/ML SDV IVPUSH ONE (23:08)
[2019-12-27] MEDS ORDERED: Ondansetron 4 MG/2 ML SDV IVPUSH ONE (23:09)
[2019-12-27] MEDS ORDERED: fentaNYL 100 MCG/2 ML SDV IVPUSH ONE (23:09)
--- NOTE | 2019-12-27 23:14 | EDM.PDOC ---
ED HPI GENERAL MEDICAL PROBLEM - General Chief Complaint: General Stated Complaint: L FLANK PAIN Time Seen by Provider: 12/27/19 23:08 Source of Information: Reports: Patient History Limitations: Reports: No Limitations - History of Present Illness INITIAL COMMENTS - FREE TEXT/NARRATIVE: Sudden left flank pain that started earlier this evening. Suddenly worsened. Pain waxes and wanes, sometimes feels discomfort in left anterior abdomen. Has had kidney stone in past but this pain pattern feels different. No hematuria. No urinary changes. No fever/chills/nausea/emesis/bowel changes. No other acute changes. No recent injuries/heavy lifting. Hx chronic back pain/previous fractured vertebrae but this is not usual pattern for his pain. Treatments [employer]: Reports: NSAIDS Left Upper Back Pain Score (Numeric/FACES): 9 - Related Data Allergies Allergy/AdvReac Type Severity Reaction Status Date / Time oxycodone AdvReac Nausea and Verified 12/27/19 23:52 Vomiting Home Meds: Home Meds . [No Known Home Meds] 12/28/19 [History] Past Medical History HEENT History: Reports: None Cardiovascular History: Reports: None Respiratory History: Reports: Intubation, Previous Gastrointestinal History: Reports: GERD, None Genitourinary History: Reports: Other (See Below), Renal Calculus Other Genitourinary History: urolithiasis in about 1996 with spontaneous passage Musculoskeletal History: Reports: Arthritis, Back Pain, Chronic, Osteoarthritis Neurological History: Reports: Neuropathy, Peripheral Psychiatric History: Reports: Anxiety, Depression Endocrine/Metabolic History: Reports: None Hematologic History: Reports: None Immunologic History: Reports: None Oncologic (Cancer) History: Reports: None Dermatologic History: Reports: None - Infectious Disease History Infectious Disease History: Reports: Chicken Pox - Past Surgical History HEENT Surgical History: Reports: Other (See Below), Oral Surgery Neurological Surgical History: Reports: Discectomy, Lumbar Spine, Other (See Below), Spinal Fusion - Past Imaging History Past Imaging History: Reports: CAT Scan (Lumbar spine in about 2009 and 2012), MRI (knees bilaterally in , MRI of the lumbar spine on 08/29/08, MRI/myelogram and lumbar spine in 2009 and 2012), Ultrasound (Bilateral breast ultrasound on 11/27/06) Social & Family History - Family History HEENT: Reports: None Cardiac: Reports: Bypass, CAD, Cardiomyopathy, High Cholesterol, Heart Failure, Hypertension, IL, Other (See Below), Pacemaker, PVD/COD, Stent Other Cardiac Family History: Maternal grandfather with fatal IL and CHF in his 70s with multiple previous MIs with history of multiple CABG, paternal grandfather with fatal IL at age 73, maternal grandmother with pacemaker with fatal IL in her 70s, parents with hyperlipidemia and hypertension, mother with history of IL and PTCA/stent in her 50s, father with and carotid occlusive disease requiring surgery however think in his 60s, brother with hypertension, maternal uncle with fatal IL at age 39 Respiratory: Reports: None GI: Reports: None : Reports: None OBGYN: Reports: Endometriosis, Other (See Below) Other OBGYN Family History: Mother with endometriosis Musculoskeletal: Reports: Gout, Other (See Below), RA Other Musculoskeletal Family History: Paternal uncle with gout, mother with rheumatoid arthritis Neurological: Reports: CVA, Migraines, Other (See Below) Other Neurological Family History: Mother with migraine headaches, maternal uncle with fatal CVA in his 60s Psychiatric: Reports: None Endocrine/Metabolic: Reports: Diabetes, type II, IDDM, Other (See Below) Other Endocrine/Metabolic Family History: Parents with IDDM Hematologic: Reports: None Immunologic: Reports: None Dermatologic: Reports: None Oncologic: Reports: Breast, Lung, Metastatic, Other (See Below), Skin Other Oncologic Family History: Paternal grandmother with fatal metastatic lung cancer in her early 70s with history of tobacco use, maternal grandfather with unknown type of skin cancer, paternal aunt with fatal stomach cancer in her 40s, sister with breast cancer in her late 20s, paternal aunt with breast cancer in her 50s, paternal aunt with breast cancer in her 40s - Caffeine Use Caffeine Use: Reports: Coffee (One cup per day), Soda (3 sodas per day). 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 ED EXAM, GENERAL - Physical Exam Exam: See Below Exam Limited By: No Limitations General Appearance: Alert, WD/WN, Severe Distress Eye Exam: Bilateral Eye: EOMI, PERRL Ears: Hearing Grossly Normal Nose: No: Nasal Deformity, Nasal Swelling, Nasal Drainage Throat/Mouth: Normal Lips, Normal Voice, No Airway Compromise Head: Atraumatic, Normocephalic Neck: Supple, Non-Tender Respiratory/Chest: No Respiratory Distress, Lungs Clear, Normal Breath Sounds, No Accessory Muscle Use, Chest Non-Tender Cardiovascular: No Murmur, Tachycardia GI/Abdominal: Normal Bowel Sounds, Soft, Non-Tender, No Distention (Male) Exam: Deferred Rectal (Males) Exam: Deferred Back Exam: Other (some tenderness with palpation in left flank noted) Extremities: Normal Inspection, Normal Range of Motion, Non-Tender, Normal Capillary Refill Neurological: Alert, Oriented, Normal Cognition, Normal Gait, No Motor/Sensory Deficits Psychiatric: Anxious Skin Exam: Warm, Dry, Intact, Normal Color Course - Vital Signs Last Recorded V/S: Last Vital Signs Temp 37.2 C 12/27/19 23:03 Pulse 83 12/27/19 23:59 Resp 16 12/27/19 23:59 BP 161/100 H 12/27/19 23:59 Pulse Ox 97 12/27/19 23:59 - Orders/Labs/Meds Orders: Active Orders 24 hr Category Date Time Status Abdomen Pelvis wo Cont [CT] Stat Exams 12/27/19 23:09 Ordered Sodium Chloride 0.9% [Normal Saline] 1,000 ml Med 12/27/19 23:38 Active IV .BOLUS Sodium Chloride 0.9% [Saline Flush] Med 12/27/19 23:08 Active 10 ml FLUSH ASDIRECTED PRN Saline Lock Insert [OM.PC] Stat Oth 12/27/19 23:08 Ordered Medication Orders Sodium Chloride (Normal Saline) 1,000 mls @ 999 mls/hr IV .BOLUS ONE Stop: 12/28/19 00:38 Last Admin: 12/27/19 23:42 Dose: 999 mls/hr Documented by: MATT Sodium Chloride (Saline Flush) 10 ml FLUSH ASDIRECTED PRN PRN Reason: Keep Vein Open Last Admin: 12/27/19 23:47 Dose: 10 ml Documented by: Admin: 12/27/19 23:41 Dose: 10 ml Documented by: MATT Labs: Laboratory Tests 12/27/19 12/27/19 12/27/19 Range/Units 23:13 23:13 23:25 WBC 14.9 H (4.0-10.2) K/uL RBC 5.17 (4.33-5.41) M/uL Hgb 15.9 (13.1-16.8) g/dL Hct 46.2 (39.0-49.0) % MCV 89.4 (84.0-98.0) fL MCH 30.8 (28.2-33.3) pg MCHC 34.4 (31.7-36.0) g/dL RDW 13.2 (11.2-14.1) % Plt Count 301 (150-350) K/uL Neut % (Auto) 67.0 (45.0-80.0) % Lymph % (Auto) 21.4 (10.0-50.0) % [place] % (Auto) 9.3 (2.0-14.0) % Eos % (Auto) 2.0 (0.0-5.0) % Baso % (Auto) 0.3 (0.0-2.0) % Neut # (Auto) 9.97 H (1.40-7.00) K/uL Lymph # (Auto) 3.19 (0.50-3.50) K/uL [place] # (Auto) 1.39 H (0.00-1.00) K/uL Eos # (Auto) 0.30 (0.00-0.50) K/uL Baso # (Auto) 0.04 (0.00-0.20) K/uL Sodium 141 (136-145) mmol/L Potassium 3.9 (3.5-5.1) mmol/L Chloride 105 (98-107) mmol/L Carbon Dioxide 27.0 (21.0-32.0) mmol/L BUN 16 (7-18) mg/dL Creatinine 0.96 (0.51-1.17) mg/dL Est Cr Clr Drug Dosing 74.25 mL/min Estimated GFR (MDRD) > 60 mL/min Glucose 115 H (74-106) mg/dL Calcium 9.1 (8.5-10.1) mg/dL Total Bilirubin 0.4 (0.2-1.0) mg/dL AST 19 (15-37) U/L ALT 56 (12-78) U/L Alkaline Phosphatase 93 (46-116) IU/L Total Protein 8.0 (6.4-8.2) g/dL Albumin 4.1 (3.4-5.0) g/dL Specimen Type Urinblad Urine Color Yellow Urine Appearance Clear Urine pH 6.0 (5.0-9.0) Ur Specific Wallace >= 1.030 (1.005-1.030) Urine Protein Negative (NEGATIVE) mg/dL Urine Glucose (UA) Negative (NEGATIVE) mg/dL Urine Ketones Negative (NEGATIVE) mg/dL Urine Occult Blood Negative (NEGATIVE) Urine Nitrite Negative (NEGATIVE) Urine Bilirubin Negative (NEGATIVE) Urine Urobilinogen 0.2 (0.2-1.0) E.U./dL Ur Leukocyte Esterase Negative (NEGATIVE) Urine RBC Not seen /HPF Urine WBC 0-5 /HPF Ur Epithelial Cells Occasional /LPF Urine Bacteria Few (NONE TO FEW) /HPF Urine Mucus Moderate H (NEGATIVE) /LPF Meds: Medications Generic Name Dose Route Start Last Admin Trade Name Freq PRN Reason Stop Dose Admin Sodium Chloride 1,000 mls @ 999 mls/hr 12/27/19 23:38 12/27/19 23:42 Normal Saline IV 12/28/19 00:38 999 mls/hr .BOLUS ONE Administration Sodium Chloride 10 ml 12/27/19 23:08 12/27/19 23:47 Saline Flush FLUSH 10 ml ASDIRECTED PRN Administration Keep Vein Open Discontinued Medications Generic Name Dose Route Start Last Admin Trade Name Freq PRN Reason Stop Dose Admin Fentanyl 100 mcg 12/27/19 23:09 12/27/19 23:27 Sublimaze IVPUSH 12/27/19 23:10 100 mcg ONETIME ONE Administration Ketorolac Tromethamine 30 mg 12/27/19 23:08 12/27/19 23:26 Toradol IVPUSH 12/27/19 23:09 30 mg ONETIME ONE Administration Ondansetron HCl 4 mg 12/27/19 23:09 12/27/19 23:25 Zofran IVPUSH 12/27/19 23:10 4 mg ONETIME ONE Administration - Re-Assessments/Exams Free Text/Narrative Re-Assessment/Exam: 12/27/19 23:13 CT of abdomen/pelvis requested to rule out kidney stone. IV/pain medication ordered. Free Text/Narrative Re-Assessment/Exam: 12/28/19 00:06 Pain improved. Now at "5". Waiting for CT results. Consider abdominal CT with contrast to rule out AAA if noncontrast CT read as normal given the sudden severe pain experienced by patient. 12/28/19 00:[address] unremarkable. Discussed differential with patient and his , which included musculoskeletal cause/pinched nerve as well as AAA. It was noted by patient that movement could exacerbate pain. Also noted that sometimes palpation over flank area seemed to reproduce pain but this was intermittent. They would like to formally rule out possibility of AAA. CTA of abdomen ordered. Will admit patient to observation in meantime and continue pain management and further workup as needed. Departure - Departure Time of Disposition: 00:31 Disposition: Refer to Observation Condition: Good Clinical Impression: Left flank pain - Discharge Information *PRESCRIPTION DRUG MONITORING PROGRAM REVIEWED*: Not Applicable *COPY OF PRESCRIPTION DRUG MONITORING REPORT IN PATIENT HARDIK: Not Applicable Referrals: Sander Greenberg PA [Primary Care Provider] - Forms: ED Department Discharge Sepsis Event Note (ED) - Evaluation Sepsis Screening Result: No Definite Risk - Focused Exam Vital Signs: Vital Signs Temp Pulse Resp BP Pulse Ox 12/27/19 23:59 83 16 161/100 H 97 12/27/19 23:56 94 18 168/109 H 95 12/27/19 23:46 93 18 170/109 H 96 12/27/19 23:38 91 18 168/114 H 96 12/27/19 23:03 37.2 C 102 H 18 199/119 H 100 - Problem List & Annotations (1) Left flank pain SNOMED Code(s): 956331476 Code(s): R10.9 - UNSPECIFIED ABDOMINAL PAIN Status: Acute Priority: High Current Visit: Yes Onset Date: 12/28/19 Annotation/Comment:: Sudden severe left flank pain tonight. No nausea/emesis. Intermittent discomfort LUQ. Negative noncontrast CT to look for stone. At times can be made worse with movement and by palpation. Most of the time cannot reproduce pain with palpation and pain can be severe at rest. Will rule out AAA with second scan. Patient does have long history of back issues after experiencing an injury. If negative will continue to monitor for changes and work on pain control. Admit observation. (2) HTN (hypertension) SNOMED Code(s): 07383362 Code(s): I10 - ESSENTIAL (PRIMARY) HYPERTENSION Status: Chronic Priority: Medium Current Visit: Yes Annotation/Comment:: Patilinsey reports history of elevated BP in past. Significantly elevated tonight, attributed to pain complaint. Improved after pain mediation. Observe trends. Qualifiers: Hypertension type: essential hypertension Qualified Code(s): I10 - Essential (primary) hypertension (3) Chronic back pain SNOMED Code(s): 030479151 Code(s): M54.9 - DORSALGIA, UNSPECIFIED; G89.29 - OTHER CHRONIC PAIN Status: Chronic Priority: Medium Current Visit: Yes Annotation/Comment:: Hx chronic back pain due to previous injury. Currently avoiding all medications as he did not the way they made him feel. May be contributing to tonight's flank pain but never has had pain similar to this/in this distribution in past. Qualifiers: Back pain location: back pain in unspecified location (4) Dyslipidemia SNOMED Code(s): 089461329 Code(s): E78.5 - HYPERLIPIDEMIA, UNSPECIFIED Status: Chronic Priority: Low Current Visit: No Onset Date: 01/31/17 Annotation/Comment:: Currently taking no medications (5) Acute left flank pain SNOMED Code(s): 442311662 Status: Chronic Priority: Medium Current Visit: No Annotation/Comment:: Stable by patient history (6) Hypothyroidism SNOMED Code(s): 61869717 Status: Chronic Priority: Low Current Visit: No Onset Date: 01/31/17 Annotation/Comment:: Currently not taking any medications Qualifiers: Hypothyroidism type: acquired Qualified Code(s): E03.9 - Hypothyroidism, unspecified (7) Acute left flank pain SNOMED Code(s): 613140944 Status: Chronic Priority: Medium Current Visit: No Annotation/Comment:: Stable by patient history (8) GERD (gastroesophageal reflux disease) SNOMED Code(s): 022381199 Code(s): K21.9 - GASTRO-ESOPHAGEAL REFLUX DISEASE WITHOUT ESOPHAGITIS Status: Acute Priority: Medium Current Visit: Yes Onset Date: ~01/31/17 Annotation/Comment:: stable by history - My Orders Last 24 Hours: My Active Orders 12/27/19 23:08 Sodium Chloride 0.9% [Saline Flush] 10 ml FLUSH ASDIRECTED PRN Saline Lock Insert [OM.PC] Stat 12/27/19 23:09 Abdomen Pelvis wo Cont [CT] Stat 12/27/19 23:38 Sodium Chloride 0.9% [Normal Saline] 1,000 ml IV .BOLUS - Assessment/Plan Admission H&P: Please use this note as an admission H&P Last 24 Hours: My Active Orders 12/27/19 23:08 Sodium Chloride 0.9% [Saline Flush] 10 ml FLUSH ASDIRECTED PRN Saline Lock Insert [OM.PC] Stat 12/27/19 23:09 Abdomen Pelvis wo Cont [CT] Stat 12/27/19 23:38 Sodium Chloride 0.9% [Normal Saline] 1,000 ml IV .BOLUS Assessment:: as above. Stable and suitable for general supervision Plan: as above. to take over patient's care later this morning.
[2019-12-27 23:32] LABS: CHLORIDE,CL 105 mmol/L (98-107); SODIUM,NA 141 mmol/L (136-145)
[2019-12-27] MEDS ORDERED: Sodium Chloride 0.9% 1,000 ML IV ONE (23:38)
[2019-12-27] MEDS: Sodium Chloride 0.9% 10 ML Syringe FLUSH PRN ×2 (23:41→23:47)
[2019-12-28] MEDS ORDERED: HYDROmorphone 1 MG/ML Syringe IVPUSH ONE (00:08)
[2019-12-28] MEDS ORDERED: Diazepam 5 MG Tab PO ONE (00:27)
[2019-12-28] MEDS: Sodium Chloride 0.9% 10 ML Syringe FLUSH PRN ×4 (00:46→19:32)
[2019-12-28] MEDS ORDERED: Ondansetron 4 MG/2 ML SDV IVPUSH PRN (00:50)
[2019-12-28] MEDS ORDERED: Diazepam 5 MG Tab PO PRN (00:53)
[2019-12-28] MEDS: Sodium Chloride 0.9% 1,000 ML IV SCH ×3 (01:33→18:25)
[2019-12-28] MEDS ORDERED: methylPREDNISolone Sodium Succinate 125 MG/2 ML SDV IVPUSH ONE (02:05)
[2019-12-28 11:33] LABS: CHLORIDE,CL 106 mmol/L (98-107); SODIUM,NA 140 mmol/L (136-145)
[2019-12-28] MEDS ORDERED: Iopamidol 755 Mg/ML 100 ML Bottle IVPUSH ONE (13:00)
[2019-12-28] MEDS ORDERED: Iopamidol 755 Mg/ML 100 ML Bottle ONE (13:00)
[2019-12-28] MEDS ORDERED: Famotidine 20 MG/2 ML SDV IVPUSH ONE (13:02)
[2019-12-28] MEDS: Ketorolac 15 MG/ML SDV IVPUSH SCH ×2 (13:22→19:31)
[2019-12-28] MEDS: Diazepam 5 MG Tab PO SCH ×2 (13:23→19:32)
[2019-12-28] MEDS ORDERED: traMADol 50 MG Tab PO PRN (14:00)
[2019-12-28] MEDS ORDERED: HYDROmorphone 0.5 MG/0.5 ML Syringe IVPUSH PRN (14:00)
--- NOTE | 2019-12-28 14:16 | PCM.PN ---
- General Info Date of Service: 12/28/19 Admission Dx/Problem (Free Text): Low back pain Functional Status: Reports: Pain Controlled (Improved), Ambulating (With difficulty), New Symptoms (New nonspecific chest pain). Denies: Urinating, Incentive Spirometry Pain Score: 8 - Review of Systems General: Reports: No Symptoms. Denies: Fever, Weakness, Fatigue, Malaise, Chills, Night Sweats, Appetite HEENT: Reports: No Symptoms Pulmonary: Reports: No Symptoms. Denies: Shortness of Breath, Pleuritic Chest Pain, Cough, Sputum, Hemoptysis, Wheezing Cardiovascular: Reports: Chest Pain. Denies: No Symptoms, Palpitations, Dyspnea on Exertion, Orthopnea, Edema, Lightheadedness, Other Gastrointestinal: Reports: No Symptoms. Denies: Abdominal Pain, Constipation, Decreased Appetite, Diarrhea, Difficulty Swallowing, Hematochezia, Melena, Nausea, Vomiting Genitourinary: Reports: No Symptoms. Denies: Dysuria, Frequency, Burning, Pain, Urgency, Incontinence, Hematuria, Retention Musculoskeletal: Reports: Arm Pain (Possibly radiating from the chest to the left arm), Back Pain, Leg Pain (Stable chronic). Denies: Neck Pain, Shoulder Pain, Joint Pain, Joint Swelling Skin: Reports: No Symptoms. Denies: Diaphoresis, Bruising Neurological: Reports: Numbness (Stable chronic), Paresthesia (As above), Tingling (As above). Denies: Confusion, Dizziness Psychiatric: Reports: No Symptoms. Denies: Agitation, Cravings, Hallucinations - Patient Data Vitals - Most Recent: Last Vital Signs Temp 36.6 C 12/28/19 11:00 Pulse 78 12/28/19 11:00 Resp 18 12/28/19 11:00 BP 141/94 H 12/28/19 11:00 Pulse Ox 96 12/28/19 11:00 Vital Signs - 24 hr 12/27/19 12/27/19 12/27/19 23:03 23:38 23:46 Temperature [ 37.2 C Oral] Temperature [ Temporal] Pulse, 102 H 91 93 Peripheral [ Pulse Oximetry] Respiratory 18 18 18 Rate Blood Pressure 199/119 H 168/114 H 170/109 H [Left Upper Arm ] Blood Pressure [Right Upper Arm] O2 Sat by Pulse 100 96 96 Oximetry 12/27/19 12/27/1920 23:56 23:59 00:10 Temperature [ Oral] Temperature [ Temporal] Pulse, 94 83 84 Peripheral [ Pulse Oximetry] Respiratory 18 16 20 Rate Blood Pressure 168/109 H 161/100 H 143/98 H [Left Upper Arm ] Blood Pressure [Right Upper Arm] O2 Sat by Pulse 95 97 95 Oximetry 12/28/19 12/28/19 12/28/19 00:25 00:40 00:49 Temperature [ Oral] Temperature [ Temporal] Pulse, 81 90 Peripheral [ Pulse Oximetry] Respiratory 20 18 Rate Blood Pressure 150/95 H 144/91 H [Left Upper Arm ] Blood Pressure 142/93 H [Right Upper Arm] O2 Sat by Pulse 97 98 96 Oximetry 12/28/19 12/28/19 12/28/19 01:15 02:30 07:00 Temperature [ 36.4 C Oral] Temperature [ 36.8 C Temporal] Pulse, 74 71 72 Peripheral [ Pulse Oximetry] Respiratory 16 18 16 Rate Blood Pressure 125/89 [Left Upper Arm ] Blood Pressure 139/97 H 137/99 H [Right Upper Arm] O2 Sat by Pulse 96 97 95 Oximetry 12/28/19 11:00 Temperature [ Oral] Temperature [ 36.6 C Temporal] Pulse, 78 Peripheral [ Pulse Oximetry] Respiratory 18 Rate Blood Pressure 141/94 H [Left Upper Arm ] Blood Pressure [Right Upper Arm] O2 Sat by Pulse 96 Oximetry Weight - Most Recent: 82.055 kg I&O - Last 24 Hours: Intake & Output 12/27/19 12/28/19 12/28/19 22:59 06:59 14:59 Intake Total 1635 Output Total 600 Balance 1635 -600 Imaging Impressions - Last 24 Hours: CT scan of the abdomen and pelvis both with and without contrast showed possible right-sided nephrolithiasis without evidence of hydronephrosis, obstruction, etc. Note a direct right inguinal hernia was also noted. 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 and previous L4-L5 posterior spinal fusion Lab Results Last 24 Hours: Laboratory Results - last 24 hr 12/27/19 12/27/19 12/27/19 Range/Units 23:13 23:13 23:25 WBC 14.9 H (4.0-10.2) K/uL RBC 5.17 (4.33-5.41) M/uL Hgb 15.9 (13.1-16.8) g/dL Hct 46.2 (39.0-49.0) % MCV 89.4 (84.0-98.0) fL MCH 30.8 (28.2-33.3) pg MCHC 34.4 (31.7-36.0) g/dL RDW 13.2 (11.2-14.1) % Plt Count 301 (150-350) K/uL Neut % (Auto) 67.0 (45.0-80.0) % Lymph % (Auto) 21.4 (10.0-50.0) % [place] % (Auto) 9.3 (2.0-14.0) % Eos % (Auto) 2.0 (0.0-5.0) % Baso % (Auto) 0.3 (0.0-2.0) % Neut # (Auto) 9.97 H (1.40-7.00) K/uL Lymph # (Auto) 3.19 (0.50-3.50) K/uL [place] # (Auto) 1.39 H (0.00-1.00) K/uL Eos # (Auto) 0.30 (0.00-0.50) K/uL Baso # (Auto) 0.04 (0.00-0.20) K/uL D-Dimer, Quantitative (0-400) ng/mL Sodium 141 (136-145) mmol/L Potassium 3.9 (3.5-5.1) mmol/L Chloride 105 (98-107) mmol/L Carbon Dioxide 27.0 (21.0-32.0) mmol/L BUN 16 (7-18) mg/dL Creatinine 0.96 (0.51-1.17) mg/dL Est Cr Clr Drug Dosing 74.25 mL/min Estimated GFR (MDRD) > 60 mL/min Glucose 115 H (74-106) mg/dL Lactic Acid (0.4-2.0) mmol/L Uric Acid (2.6-7.2) mg/dL Calcium 9.1 (8.5-10.1) mg/dL Total Bilirubin 0.4 (0.2-1.0) mg/dL AST 19 (15-37) U/L ALT 56 (12-78) U/L Alkaline Phosphatase 93 (46-116) IU/L Creatine Kinase (26-308) U/L Creatine Kinase Index (0.0-2.5) % CK-MB (CK-2) (0.00-3.60) ng/mL Troponin I (0.000-0.056) ng/mL NT-Pro-B Natriuret Pep (0-125) pg/mL Total Protein 8.0 (6.4-8.2) g/dL Albumin 4.1 (3.4-5.0) g/dL Amylase (25-115) U/L Lipase (73-393) U/L Specimen Type Urinblad Urine Color Yellow Urine Appearance Clear Urine pH 6.0 (5.0-9.0) Ur Specific [place] >= 1.030 (1.005-1.030) Urine Protein Negative (NEGATIVE) mg/dL Urine Glucose (UA) Negative (NEGATIVE) mg/dL Urine Ketones Negative (NEGATIVE) mg/dL Urine Occult Blood Negative (NEGATIVE) Urine Nitrite Negative (NEGATIVE) Urine Bilirubin Negative (NEGATIVE) Urine Urobilinogen 0.2 (0.2-1.0) E.U./dL Ur Leukocyte Esterase Negative (NEGATIVE) Urine RBC Not seen /HPF Urine WBC 0-5 /HPF Ur Epithelial Cells Occasional /LPF Urine Bacteria Few (NONE TO FEW) /HPF Urine Mucus Moderate H (NEGATIVE) /LPF 12/28/19 12/28/19 12/28/19 Range/Units 10:50 10:50 10:50 WBC 11.1 H (4.0-10.2) K/uL RBC 4.95 (4.33-5.41) M/uL Hgb 15.3 (13.1-16.8) g/dL Hct 44.1 (39.0-49.0) % MCV 89.1 (84.0-98.0) fL MCH 30.9 (28.2-33.3) pg MCHC 34.7 (31.7-36.0) g/dL RDW 13.0 (11.2-14.1) % Plt Count 284 (150-350) K/uL Neut % (Auto) 93.5 H (45.0-80.0) % Lymph % (Auto) 5.7 L (10.0-50.0) % [place] % (Auto) 0.7 L (2.0-14.0) % Eos % (Auto) 0.0 (0.0-5.0) % Baso % (Auto) 0.1 (0.0-2.0) % Neut # (Auto) 10.37 H (1.40-7.00) K/uL Lymph # (Auto) 0.63 (0.50-3.50) K/uL [place] # (Auto) 0.08 (0.00-1.00) K/uL Eos # (Auto) 0.00 (0.00-0.50) K/uL Baso # (Auto) 0.01 (0.00-0.20) K/uL D-Dimer, Quantitative < 100 (0-400) ng/mL Sodium 140 (136-145) mmol/L Potassium 4.1 (3.5-5.1) mmol/L Chloride 106 (98-107) mmol/L Carbon Dioxide 22.4 (21.0-32.0) mmol/L BUN 12 (7-18) mg/dL Creatinine 0.78 (0.51-1.17) mg/dL Est Cr Clr Drug Dosing 93.31 mL/min Estimated GFR (MDRD) > 60 mL/min Glucose 166 H (74-106) mg/dL Lactic Acid (0.4-2.0) mmol/L Uric Acid 5.1 (2.6-7.2) mg/dL Calcium 8.6 (8.5-10.1) mg/dL Total Bilirubin 0.5 (0.2-1.0) mg/dL AST 16 (15-37) U/L ALT 48 (12-78) U/L Alkaline Phosphatase 84 (46-116) IU/L Creatine Kinase 66 (26-308) U/L Creatine Kinase Index 0.8 (0.0-2.5) % CK-MB (CK-2) 0.50 (0.00-3.60) ng/mL Troponin I 0.000 (0.000-0.056) ng/mL NT-Pro-B Natriuret Pep 94 (0-125) pg/mL Total Protein 7.4 (6.4-8.2) g/dL Albumin 3.7 (3.4-5.0) g/dL Amylase 37 (25-115) U/L Lipase 67 L (73-393) U/L Specimen Type Urine Color Urine Appearance Urine pH (5.0-9.0) Ur Specific [place] (1.005-1.030) Urine Protein (NEGATIVE) mg/dL Urine Glucose (UA) (NEGATIVE) mg/dL Urine Ketones (NEGATIVE) mg/dL Urine Occult Blood (NEGATIVE) Urine Nitrite (NEGATIVE) Urine Bilirubin (NEGATIVE) Urine Urobilinogen (0.2-1.0) E.U./dL Ur Leukocyte Esterase (NEGATIVE) Urine RBC /HPF Urine WBC /HPF Ur Epithelial Cells /LPF Urine Bacteria (NONE TO FEW) /HPF Urine Mucus (NEGATIVE) /LPF 12/28/19 Range/Units 10:50 WBC (4.0-10.2) K/uL RBC (4.33-5.41) M/uL Hgb (13.1-16.8) g/dL Hct (39.0-49.0) % MCV (84.0-98.0) fL MCH (28.2-33.3) pg MCHC (31.7-36.0) g/dL RDW (11.2-14.1) % Plt Count (150-350) K/uL Neut % (Auto) (45.0-80.0) % Lymph % (Auto) (10.0-50.0) % [place] % (Auto) (2.0-14.0) % Eos % (Auto) (0.0-5.0) % Baso % (Auto) (0.0-2.0) % Neut # (Auto) (1.40-7.00) K/uL Lymph # (Auto) (0.50-3.50) K/uL [place] # (Auto) (0.00-1.00) K/uL Eos # (Auto) (0.00-0.50) K/uL Baso # (Auto) (0.00-0.20) K/uL D-Dimer, Quantitative (0-400) ng/mL Sodium (136-145) mmol/L Potassium (3.5-5.1) mmol/L Chloride (98-107) mmol/L Carbon Dioxide (21.0-32.0) mmol/L BUN (7-18) mg/dL Creatinine (0.51-1.17) mg/dL Est Cr Clr Drug Dosing mL/min Estimated GFR (MDRD) mL/min Glucose (74-106) mg/dL Lactic Acid 3.2 H (0.4-2.0) mmol/L Uric Acid (2.6-7.2) mg/dL Calcium (8.5-10.1) mg/dL Total Bilirubin (0.2-1.0) mg/dL AST (15-37) U/L ALT (12-78) U/L Alkaline Phosphatase (46-116) IU/L Creatine Kinase (26-308) U/L Creatine Kinase Index (0.0-2.5) % CK-MB (CK-2) (0.00-3.60) ng/mL Troponin I (0.000-0.056) ng/mL NT-Pro-B Natriuret Pep (0-125) pg/mL Total Protein (6.4-8.2) g/dL Albumin (3.4-5.0) g/dL Amylase (25-115) U/L Lipase (73-393) U/L Specimen Type Urine Color Urine Appearance Urine pH (5.0-9.0) Ur Specific [place] (1.005-1.030) Urine Protein (NEGATIVE) mg/dL Urine Glucose (UA) (NEGATIVE) mg/dL Urine Ketones (NEGATIVE) mg/dL Urine Occult Blood (NEGATIVE) Urine Nitrite (NEGATIVE) Urine Bilirubin (NEGATIVE) Urine Urobilinogen (0.2-1.0) E.U./dL Ur Leukocyte Esterase (NEGATIVE) Urine RBC /HPF Urine WBC /HPF Ur Epithelial Cells /LPF Urine Bacteria (NONE TO FEW) /HPF Urine Mucus (NEGATIVE) /LPF Johan Results Last 24 Hours: None Med Orders - Current: Current Medications Diazepam (Valium.) 10 mg PO Q6H [facility] Last Admin: 12/28/19 13:23 Dose: 10 mg Documented by: Hydromorphone HCl (Dilaudid) 0.5 mg IVPUSH Q6H PRN PRN Reason: Pain (severe 7-10) Sodium Chloride (Normal Saline) 1,000 mls @ 125 mls/hr IV ASDIRECTED [facility] Last Admin: 12/28/19 09:32 Dose: 125 mls/hr Documented by: Ketorolac Tromethamine (Toradol) 15 mg IVPUSH Q6H [facility] Last Admin: 12/28/19 13:22 Dose: 15 mg Documented by: Ondansetron HCl (Zofran) 4 mg IVPUSH Q6H PRN PRN Reason: Nausea/Vomiting Sodium Chloride (Saline Flush) 10 ml FLUSH ASDIRECTED PRN PRN Reason: Keep Vein Open Last Admin: 12/28/19 08:29 Dose: 10 ml Documented by: Tramadol HCl (Ultram) 50 mg PO Q6H PRN PRN Reason: Breakthrough Pain Discontinued Medications Diazepam (Valium.) 5 mg PO ONETIME ONE Stop: 12/28/19 00:28 Last Admin: 12/28/19 00:43 Dose: 5 mg Documented by: Diazepam (Valium.) 5 mg PO TID PRN PRN Reason: Spasms Last Admin: 12/28/19 08:27 Dose: 5 mg Documented by: Famotidine (Pepcid) 40 mg IVPUSH ONETIME ONE Stop: 12/28/19 13:03 Last Admin: 12/28/19 13:24 Dose: 40 mg Documented by: Fentanyl (Sublimaze) 100 mcg IVPUSH ONETIME ONE Stop: 12/27/19 23:10 Last Admin: 12/27/19 23:27 Dose: 100 mcg Documented by: Hydromorphone HCl (Dilaudid) 1 mg IVPUSH ONETIME ONE Stop: 12/28/19 00:09 Last Admin: 12/28/19 00:47 Dose: Not Given Documented by: Sodium Chloride (Normal Saline) 1,000 mls @ 999 mls/hr IV .BOLUS ONE Stop: 12/28/19 00:38 Last Admin: 12/27/19 23:42 Dose: 999 mls/hr Documented by: Iopamidol (Isovue-370 (76%)) 100 ml IVPUSH ONETIME ONE Stop: 12/28/19 13:01 Ketorolac Tromethamine (Toradol) 30 mg IVPUSH ONETIME ONE Stop: 12/27/19 23:09 Last Admin: 12/27/19 23:26 Dose: 30 mg Documented by: Methylprednisolone Sodium Succinate (Solu-Medrol) 125 mg IVPUSH ONETIME ONE Stop: 06/23/20 02:06 Last Admin: 12/28/19 02:23 Dose: 125 mg Documented by: Morphine Sulfate (Morphine) 4 mg IVPUSH Q1H PRN PRN Reason: Pain Last Admin: 12/28/19 08:28 Dose: 4 mg Documented by: Ondansetron HCl (Zofran) 4 mg IVPUSH ONETIME ONE Stop: 12/27/19 23:10 Last Admin: 12/27/19 23:25 Dose: 4 mg Documented by: - Exam Quality Assessment: DVT Prophylaxis. No: Supplemental Oxygen, Central Line/PICC, Urine Catheter, Skin Breakdown, Restraints General: Alert, Oriented, Cooperative, No Acute Distress HEENT: Pupils Equal, Pupils Reactive, EOMI, Mucous Membr. Moist/Clint. No: Scleral Icterus Neck: Supple, Trachea Midline, No JVD, No Thyromegaly, +2 Carotid Pulse wo Bruit. No: Lymphadenopathy Lungs: Clear to Auscultation, Normal Respiratory Effort. No: Rub Cardiovascular: Regular Rate, Regular Rhythm, No Murmurs. No: Gallops, Rubs GI/Abdominal Exam: Normal Bowel Sounds, Soft, Non-Tender, No Organomegaly, No Distention, No Abnormal Bruit, No Mass, Other (Obese). No: Guarding (Male) Exam: Deferred Back Exam: Decreased Range of Motion, Muscle Spasm (Mild bilateral upper lumbar), Paraspinal Tenderness (Mild to moderate bilateral paralumbarintermittent). No: CVA Tenderness (L), CVA Tenderness (R), Vertebral Tenderness Extremities: Normal Inspection, Normal Range of Motion, Non-Tender, No Pedal Edema, Normal Capillary Refill. No: Kiara's Sign Peripheral Pulses: 2+: Radial (L), Radial (R), Dorsalis Pedis (L), Dorsalis Pedis (R) Skin: Warm, Dry, Intact. No: Ecchymosis Neurological: No New Focal Deficit Psy/Mental Status: Alert, Normal Affect, Normal Mood. No: Agitated, Hallucinations, Withdrawal Symptoms EKG INTERPRETATION EKG Date: 12/28/19 Time: 11:03 Rhythm: NSR Rate (Beats/Min): 79 [place]: Normal (Left) P-Wave: Present QRS: Normal (0.08 second repolarization changes and T-wave inversion in lead 3) Comparison: NA - No Prior EKG EKG Interpretation Comments: No acute ischemic changes Sepsis Event Note - Evaluation Sepsis Screening Result: No Definite Risk - Focused Exam Vital Signs: Vital Signs Temp Temp Pulse Resp BP BP Pulse Ox 12/28/19 11:00 36.6 C 78 18 141/94 H 96 12/28/19 07:00 36.4 C 72 16 125/89 95 12/28/19 02:30 71 18 137/99 H 97 Date Exam was Performed: 12/28/19 Time Exam was Performed: 14:33 - Problem List & Annotations (1) Low back pain SNOMED Code(s): 776774095 Code(s): M54.5 - LOW BACK PAIN Status: Acute Current Visit: Yes Qualifiers: Chronicity: acute Back pain laterality: bilateral Sciatica presence: without sciatica Qualified Code(s): M54.5 - Low back pain Annotation/Comment:: Somewhat improved however persistent need for IV morphine. Decrease IV pain medications with increase of oral diazepam, which will be scheduled on a regular basis. Consider CT versus MRI of the lumbar be region depending on his clinical course. (2) Chest pain SNOMED Code(s): 43759574 Code(s): R07.9 - CHEST PAIN, UNSPECIFIED Status: Acute Priority: High Current Visit: Yes Onset Date: 12/28/19 Annotation/Comment:: Patient complained of upper thoracic chest pressure radiating to his left arm in the a.m. of 12/28. Initiate standard rule out PR orders. No other anginal complaints. Consider outpatient cardiac evaluation in light of his cardiac risk factors. 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 Further workup depending on his clinical course. (3) Lactic acid increased SNOMED Code(s): 10828045 Code(s): E87.2 - ACIDOSIS Status: Acute Priority: High Current Visit: Yes Onset Date: 12/28/19 Annotation/Comment:: Note moderate leukocytosis on admission, which did improve on 12/27 with no fever or clinical evidence of sepsis. It as above not performed on admission however initiate standard sepsis protocol, including repeat lactic acid level, IV Rocephin, 1 L IV bolus of lactated Ringer's, etc. UA was negative. No definite sign of infection. (4) Osteoarthritis SNOMED Code(s): 915854040 Code(s): M19.90 - UNSPECIFIED OSTEOARTHRITIS, UNSPECIFIED SITE Status: Chronic Priority: Medium Current Visit: Yes Qualifiers: Osteoarthritis location: multiple joints Osteoarthritis type: primary Qualified Code(s): M89.49 - Other hypertrophic osteoarthropathy, multiple sites Annotation/Comment:: Otherwise stable by history (5) GERD (gastroesophageal reflux disease) SNOMED Code(s): 005924258 Code(s): K21.9 - GASTRO-ESOPHAGEAL REFLUX DISEASE WITHOUT ESOPHAGITIS Status: Chronic Priority: Medium Current Visit: Yes Onset Date: ~01/31/17 Qualifiers: Esophagitis presence: without esophagitis Qualified Code(s): K21.9 - Gastro-esophageal reflux disease without esophagitis Annotation/Comment:: stable by history (6) HTN (hypertension) SNOMED Code(s): 38809377 Code(s): I10 - ESSENTIAL (PRIMARY) HYPERTENSION Status: Chronic Priority: Medium Current Visit: Yes Qualifiers: Hypertension type: essential hypertension Qualified Code(s): I10 - Essential (primary) hypertension Annotation/Comment:: Continued somewhat elevated blood pressures during early phases of this hospitalization. Arsen reports history of elevated BP in past. Significantly elevated on admission, which the patient attributed to pain complaint, which improved after pain mediation. Continue to observe closely by his regular providers. Observe trends. (7) Dyslipidemia SNOMED Code(s): 921235740 Code(s): E78.5 - HYPERLIPIDEMIA, UNSPECIFIED Status: Acute Priority: Medium Current Visit: No Onset Date: 01/31/17 Annotation/Comment:: Glycosylated hemoglobin and lipid panel in the a.m. Weight loss in moderation advisable. - Problem List Review Problem List Initiated/Reviewed/Updated: Yes - My Orders Last 24 Hours: My Active Orders 12/28/19 10:37 CULTURE URINE [RM] Routine 12/28/19 10:39 EKG Documentation Completion [RC] ASDIRECTED 12/28/19 11:25 REFLEX LACTIC ACID YES OR NO [CHEM] Routine 12/28/19 13:00 Ketorolac [Toradol] 15 mg IVPUSH Q6H [id number] [Valium] 10 mg PO Q6H 12/28/19 14:00 HYDROmorphone [Dilaudid] 0.5 mg IVPUSH Q6H PRN traMADol [Ultram] 50 mg PO Q6H PRN 06/23/20 16:00 CK W CKMB [CHEM] Routine LACTATE SEPSIS W/ REFLEX [CHEM] Stat TROPONIN I [CHEM] Routine - Assessment Assessment:: As above - Plan Plan:: As above. Extensive precautions were given to the patient and his , who are in agreement with the treatment plan. Continue observation status for now.
[2019-12-28] MEDS: cefTRIAXone 1 GM in Sodium Chloride 0.9% 100 ML IV SCH (15:13)
[2019-12-29] MEDS: Ketorolac 15 MG/ML SDV IVPUSH SCH ×2 (02:21→07:58)
[2019-12-29] MEDS: Diazepam 5 MG Tab PO SCH ×2 (02:21→07:58)
[2019-12-29] MEDS: cefTRIAXone 1 GM in Sodium Chloride 0.9% 100 ML IV SCH (02:22)
[2019-12-29] MEDS: Sodium Chloride 0.9% 10 ML Syringe FLUSH PRN ×2 (02:22→07:59)
[2019-12-29] MEDS: Sodium Chloride 0.9% 1,000 ML IV SCH (03:13)
[2019-12-29 08:08] LABS: HEMOGLOBIN A1C 5.3 % (4.3-5.7)
[2019-12-29 08:15] VITALS: PULSE 77
[2019-12-29 08:31] VITALS: BP 147/109
[2019-12-29] MEDS ORDERED: amLODIPine 5 MG Tab PO SCH (08:45)
[2019-12-29 08:58] LABS: CHLORIDE,CL 110 mmol/L (98-107); SODIUM,NA 142 mmol/L (136-145)
--- NOTE | 2019-12-29 09:50 | PCM.DCSUM1 ---
Discharge Summary - Hospital Course HPI Initial Comments: See emergency room note/admission H&P Brief History: See emergency room note/admission H&P Diagnosis: Stroke: No Modified Falls Scale: No Symptoms at All Modified Falls Scale Score: 0 - Discharge Data Discharge Date: 12/29/19 Discharge Disposition: Home, Self-Care 01 Condition: Good - Referral to Home Health Primary Care Physician: MADISON Fonseca - Discharge Diagnosis/Problem(s) (1) Low back pain SNOMED Code(s): 109295735 ICD Code: M54.5 - LOW BACK PAIN Status: Acute Current Visit: Yes Problem Details: Symptoms significantly improved with change to regular scheduled oral diazepam with no significant additional Ultram needed at this time. Patient will be changed to Flexeril with sedation precautions, etc. given. Close follow-up with his regular provider as per discharge instructions. Work excuse provided. Back exercises discussed. Somewhat improved, however persistent need for IV morphine needed in the a.m. of 12/27 at which time I did decrease IV pain medications with increase of oral diazepam, which was scheduled on a regular basis until hospital discharge. Consider CT of the lumbar spine at follow-up visit with patient not a candidate for an MRI and very to his previous spinal fusion. He was apparently told by his orthopedic surgeon 2 years ago that he may need repeat surgery. Activity restrictions, etc. discussed. Qualifiers: Chronicity: acute Back pain laterality: bilateral Sciatica presence: without sciatica Qualified Code(s): M54.5 - Low back pain (2) Chest pain SNOMED Code(s): 58690959 ICD Code: R07.9 - CHEST PAIN, UNSPECIFIED Status: Acute Priority: High Current Visit: Yes Onset Date: 12/28/19 Problem Details: Patient complained of atypical upper thoracic chest pressure radiating to his left arm in the a.m. of 12/27. Negative workup for acute DC with resolution of previous symptoms on day of discharge. No other anginal complaints. Consider outpatient cardiac evaluation in light of his cardiac risk factors especially preoperatively, if further surgery is required. Note incidental celiac artery narrowing by CT scan as below, which was extensively discussed with the patient and his during this hospitalization. Further workup depending on his clinical course. (3) Lactic acid increased SNOMED Code(s): 83524506 ICD Code: E87.2 - ACIDOSIS Status: Acute Priority: High Current Visit: Yes Onset Date: 12/28/19 Problem Details: Note moderate leukocytosis on admission, which did improve on 12/27 with no fever or clinical evidence of sepsis. Lactic acid level not performed on admission, however initiate standard sepsis protocol, including repeat lactic acid level, IV Rocephin, 1 L IV bolus of lactated Ringer's, etc. UA was negative with final urine culture and sensitivity results pending. Mild leukocytosis at this time possibly secondary to stress reaction with no current fever, etc. No definite sign of infection or indication current antibiotic therapy. Lactic acid level normal on 12/28. (4) Osteoarthritis SNOMED Code(s): 716839691 ICD Code: M19.90 - UNSPECIFIED OSTEOARTHRITIS, UNSPECIFIED SITE Status: Chronic Priority: Medium Current Visit: Yes Problem Details: Otherwise stable by history Qualifiers: Osteoarthritis location: multiple joints Osteoarthritis type: primary Qualified Code(s): M89.49 - Other hypertrophic osteoarthropathy, multiple sites (5) GERD (gastroesophageal reflux disease) SNOMED Code(s): 149856370 ICD Code: K21.9 - GASTRO-ESOPHAGEAL REFLUX DISEASE WITHOUT ESOPHAGITIS Status: Chronic Priority: Medium Current Visit: Yes Onset Date: ~01/31/17 Problem Details: stable by history Qualifiers: Esophagitis presence: without esophagitis Qualified Code(s): K21.9 - Gastro-esophageal reflux disease without esophagitis (6) HTN (hypertension) SNOMED Code(s): 87727378 ICD Code: I10 - ESSENTIAL (PRIMARY) HYPERTENSION Status: Chronic Priority: Medium Current Visit: Yes Problem Details: Continued elevated blood pressures during hospitalization. Arsen reports history of elevated BP in past, however he did stop this medication after he had an intentional weight loss. [facility] stated this morning with close follow-up by his regular provider. Cardiolite stress test should not be performed until his blood pressures and his low back pain have improved. Consider dobutamine Cardiolite stress test, if his low back pain remains an issue. Significantly elevated blood pressures on admission, which the patient attributed to pain complaint, which improved after pain mediation. Qualifiers: Hypertension type: essential hypertension Qualified Code(s): I10 - Essential (primary) hypertension (7) Dyslipidemia SNOMED Code(s): 291726888 ICD Code: E78.5 - HYPERLIPIDEMIA, UNSPECIFIED Status: Acute Priority: Medium Current Visit: No Onset Date: 01/31/17 Problem Details: Glycosylated hemoglobin 5.3% with normal lipid panel on 12/28. Weight loss in moderation advisable with dietary information provided at discharge.. (8) Hypocalcemia SNOMED Code(s): 5278036 ICD Code: E83.51 - HYPOCALCEMIA Status: Acute Priority: Medium Current Visit: Yes Onset Date: 12/29/19 Problem Details: Normal on admission. Observe for now. (9) Hypoalbuminemia SNOMED Code(s): 425674791 ICD Code: E88.09 - OTH DISORDERS OF PLASMA-PROTEIN METABOLISM, NEC Status: Acute Priority: Medium Current Visit: Yes Onset Date: 12/29/19 Problem Details: Normal on admission. Observe for now. 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 Precautions given (11) Anemia SNOMED Code(s): 188993518 ICD Code: D64.9 - ANEMIA, UNSPECIFIED Status: Acute Priority: High Current Visit: Yes Onset Date: 12/29/19 Problem Details: Progressive anemia during this hospitalization with decrease of his hemoglobin to 12.9 at discharge with initial hemoglobin of 15.9 on admission. Verbal rehydration effect. Vitamin B-12 level was normal however insufficient sample for previously ordered TIBC panel and ferritin level, which will be conducted at his follow-up visit. Qualifiers: Anemia type: unspecified type Qualified Code(s): D64.9 - Anemia, unspecified (12) Tobacco abuse counseling SNOMED Code(s): 591198739, 807055483, 591161899 ICD Code: Z71.6 - TOBACCO ABUSE COUNSELING Status: Chronic Priority: Medium Current Visit: Yes Problem Details: Tobacco exposure from his , who is already in a tobacco cessation program through her regular provider. - Patient Summary/Data Operative Procedure(s) Performed: None Complications: None Consults: None Labs Pending at D/C: 1. Final urine culture and sensitivity 2. Report for acute abdominal x-rays from 12/29/19 Recommended Follow-up Testing/Procedures: As per discharge instructions Planned Operative Procedure(s) after DC: As per discharge instructions Hospital Course: The patient was is in observation status with aggressive IV pain control as above/below. Patient has tolerated change from IV morphine to regularly scheduled oral diazepam therapy with no change in his neurological status during this hospitalization. Nonspecific abdominal and atypical chest pain-type symptoms with negative workup for acute DC and possible needed further follow-up evaluation as above. Otherwise, no complications during this hospitalization. - Patient Instructions Diet: Heart Healthy Diet Activity: As Tolerated Driving: May Drive Today Showering/Bathing: May Shower Notify Provider of: Fever, Increased Pain, Nausea and/or Vomiting Other/Special Instructions: 1. Followup with your regular provider on 01/03 at 08:40 a.m. at the [facility] in [place] as directed for reevaluation and recommended CBC, lipase, amylase, TIBC panel, ferritin level and comprehensive metabolic panel. Bring these discharge instructions with you to that visit. 2. Urine tests should be repeated at follow up visit with possible repeat urine culture,etc. at that time. Today's urine culture is pending with results in about 2-3 days. We will call you, if we need to change your therapy. 3. Work excuse- See Form. 4. Discuss possible CT scan of the lumbar spine, orthopedic/neurology referral, etc. depending on your symptoms at follow-up. 5. Consider further cardiac workup especially prior to any planned surgery and/or earlier depending on your symptoms at the above follow-up. 6. Sedation dry mouth, etc. precautions with Flexeril as discussed. 7. BenGay or equivalent, heating pad, and/or ice packs as directed. 8. Tylenol 650 mg by mouth every 4 hours and/or OTC ibuprofen 2-3 tabs by mouth every 6 hours with food as directed./needed. You may stagger these medications for 48-72 hours only, which essentially means that you are receiving a pain medication about every 2 hours. 9. Congratulations that your is trying to quit smoking. 10. Immediately after this visit verify that your cellular telephone's voicemail has been activated and is empty. Also verify that your home telephone's answering machine is operating properly and has space to receive messages. Note that it is sometimes necessary for us to be able to contact you at a later date to discuss your medical care. 11. Please remember that we are ALWAYS here for you and want to answer any questions you may have. Feel free to call the hospital any time and we call you back DEXTER. 12. Continue to observe your blood pressures closely through your regular provider with medication compliance encouraged. SYMPTOMS TO LOOK OUT FOR: You have been hospitalized for your low back pain is atypical chest pain, and atypical stomach/abdominal disease and should look out for the following symptoms after discharge: 1. Make absolutely certain that you completely understand the reasons you are taking any of your new and/or old medications and/or supplements as discussed with you by the nurse at time of discharge. This includes possible side effects versus interactions between your medications and/or supplements. Don't be afraid to take extra time to ask any questions or express any concerns, because that is what we are here for. It is very important to us that you understand your care. 2. Notify this facility, telephone number [phone], and/or your regular provider DEXTER if you experience any of the following symptoms: a. Any increased abdominal pain, heartburn, nausea, vomiting, etc., which has changed since sure hospital discharge and is not responding to medications and/or supplements you have been prescribed. b. Any change in bowel habits, including more than 5 watery stools per day, severe constipation with no excellent bowel movements every 2 days after discharge, and/or any change in your normal bowel habits. c. Any sudden onset of change of your stool appearance, including blood, black tarry stools, etc. as discussed at discharge. d. Any persistent fever equal to or greater than 100.5 degrees, which does not respond to recommended doses of Tylenol, ibuprofen, Aleve, or other previously prescribed fever medications. e. Any pressure in the chest, cold sweats, decreased exercise tolerance, etc. f. Any worsening of your low back pain including persistent chronic leg weakness, paresthesias, etc. - Discharge Plan *PRESCRIPTION DRUG MONITORING PROGRAM REVIEWED*: Not Applicable *COPY OF PRESCRIPTION DRUG MONITORING REPORT IN PATIENT HARDIK: Not Applicable Prescriptions/Med Rec: Cyclobenzaprine [Flexeril] 10 mg PO TID PRN #30 tab PRN Reason: Spasms amLODIPine [Norvasc] 5 mg PO DAILY #30 tablet Home Medications: Home Meds Cyclobenzaprine [Flexeril] 10 mg PO TID PRN #30 tab 12/29/19 [Rx] amLODIPine [Norvasc] 5 mg PO DAILY #30 tablet 12/29/19 [Rx] Oxygen Therapy Mode: Room Air Patient Handouts: Cyclobenzaprine tablets, Heart-Healthy Eating Plan, [id number], Hypertension, Adult, [id number], Chronic Back Pain, [id number] Forms: Return to Work/Inpatient LLN, ED Department Discharge Referrals: Sander Greenberg PA [Primary Care Provider] - - Discharge Summary/Plan Comment DC Time >30 min.: No (Coordination of care ) Discharge Summary/Plan Comment: As above. Extensive precautions were given to the patient, who is in agreement with the treatment plan. See Patient Instructions for further treatment and plan. - General Info Date of Service: 12/29/19 Admission Dx/Problem (Free Text: Low back pain Functional Status: Reports: Pain Controlled, Tolerating Diet, Ambulating, Urinating. Denies: New Symptoms, Incentive Spirometry Numeric/FACES Score: 2 - Review of Systems General: Reports: No Symptoms. Denies: Fever, Weakness, Fatigue, Malaise, Chills, Night Sweats, Appetite HEENT: Reports: No Symptoms. Denies: Eye Pain, Headaches, Post Nasal Drip, Sinus Congestion, Sore Throat, Visual Changes Pulmonary: Reports: No Symptoms. Denies: Shortness of Breath, Pleuritic Chest Pain, Cough, Sputum, Hemoptysis, Wheezing Cardiovascular: Reports: No Symptoms. Denies: Chest Pain, Palpitations, Dyspnea on Exertion, Orthopnea, PND, Edema, Lightheadedness Gastrointestinal: Reports: Constipation (Mild with no bowel movement since admission). Denies: Abdominal Pain, Decreased Appetite, Diarrhea, Difficulty Swallowing, Flatus, Hematochezia, Melena, Nausea, Vomiting Genitourinary: Reports: No Symptoms. Denies: Dysuria, Frequency, Burning, Pain, Urgency, Incontinence, Hematuria, Retention, Flank Pain Musculoskeletal: Reports: Back Pain (Improved). Denies: Neck Pain, Shoulder Pain, Arm Pain, Hand Pain, Leg Pain, Foot Pain, Joint Pain, Joint Swelling Skin: Reports: No Symptoms. Denies: Diaphoresis, Bruising Neurological: Reports: No Symptoms. Denies: Confusion, Dizziness, Numbness, Tingling, Difficulty Walking, Weakness Psychiatric: Reports: No Symptoms. Denies: Confusion, Agitation, Cravings, Hallucinations - Patient Data Vitals - Most Recent: Last Vital Signs Temp 36.6 C 12/29/19 08:00 Pulse 77 12/29/19 08:00 Resp 16 12/29/19 08:00 BP 147/109 H 12/29/19 09:12 Pulse Ox 96 12/29/19 08:00 Vital Signs - 24 hr 12/28/19 12/28/19 12/28/19 11:00 15:00 19:00 Temperature [ 37.0 C 36.8 C Oral] Temperature [ 36.6 C 36.4 C Temporal] Pulse, 78 79 90 Peripheral [ Pulse Oximetry] Respiratory 18 18 20 Rate Blood Pressure Blood Pressure 141/94 H 127/85 135/93 H [Left Upper Arm ] O2 Sat by Pulse 96 95 95 Oximetry 12/28/19 12/29/19 12/29/19 23:00 02:18 08:00 Temperature [ 36.7 C 36.9 C Oral] Temperature [ 36.6 C Temporal] Pulse, 90 81 77 Peripheral [ Pulse Oximetry] Respiratory 20 16 16 Rate Blood Pressure Blood Pressure 133/86 102/70 157/111 H [Left Upper Arm ] O2 Sat by Pulse 95 96 96 Oximetry 12/29/19 12/29/19 08:30 09:12 Temperature [ Oral] Temperature [ Temporal] Pulse, Peripheral [ Pulse Oximetry] Respiratory Rate Blood Pressure 147/109 H Blood Pressure 147/109 H [Left Upper Arm ] O2 Sat by Pulse Oximetry Weight - Most Recent: 82.055 kg I&O - Last 24 hours: Intake & Output 12/28/19 12/29/19 12/29/19 22:59 06:59 14:59 Intake Total 1842 1411 480 Output Total 400 375 Balance 1442 1036 480 Imaging Impressions - Last 24 hrs: Acute abdominal x-rays on 12/29/19 status post L4-L5 fusion with mild scoliosis. Mild increased gaseous and stool with elevated right hemidiaphragm, however no fluid levels, free air, ileus, or obstruction.. Mild cardiomegaly with CHF, pulmonary infiltrates, pneumothorax, etc. CT scan of the abdomen and pelvis both with and without contrast on 12/27/19 showed possible right-sided nephrolithiasis without evidence of hydronephrosis, obstruction, etc. Note a direct right inguinal hernia was also noted. 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 and previous L4-L5 posterior spinal fusion Lab Results - Last 24 hrs: Laboratory Results - last 24 hr 12/28/19 12/28/19 12/28/19 Range/Units 10:50 10:50 10:50 WBC 11.1 H (4.0-10.2) K/uL RBC 4.95 (4.33-5.41) M/uL Hgb 15.3 (13.1-16.8) g/dL Hct 44.1 (39.0-49.0) % MCV 89.1 (84.0-98.0) fL MCH 30.9 (28.2-33.3) pg MCHC 34.7 (31.7-36.0) g/dL RDW 13.0 (11.2-14.1) % Plt Count 284 (150-350) K/uL Neut % (Auto) 93.5 H (45.0-80.0) % Lymph % (Auto) 5.7 L (10.0-50.0) % [place] % (Auto) 0.7 L (2.0-14.0) % Eos % (Auto) 0.0 (0.0-5.0) % Baso % (Auto) 0.1 (0.0-2.0) % Neut # (Auto) 10.37 H (1.40-7.00) K/uL Lymph # (Auto) 0.63 (0.50-3.50) K/uL [place] # (Auto) 0.08 (0.00-1.00) K/uL Eos # (Auto) 0.00 (0.00-0.50) K/uL Baso # (Auto) 0.01 (0.00-0.20) K/uL D-Dimer, Quantitative < 100 (0-400) ng/mL Sodium 140 (136-145) mmol/L Potassium 4.1 (3.5-5.1) mmol/L Chloride 106 (98-107) mmol/L Carbon Dioxide 22.4 (21.0-32.0) mmol/L BUN 12 (7-18) mg/dL Creatinine 0.78 (0.51-1.17) mg/dL Est Cr Clr Drug Dosing 93.31 mL/min Estimated GFR (MDRD) > 60 mL/min Glucose 166 H (74-106) mg/dL Hemoglobin A1c (4.3-5.7) % Lactic Acid (0.4-2.0) mmol/L Uric Acid 5.1 (2.6-7.2) mg/dL Calcium 8.6 (8.5-10.1) mg/dL Total Bilirubin 0.5 (0.2-1.0) mg/dL AST 16 (15-37) U/L ALT 48 (12-78) U/L Alkaline Phosphatase 84 (46-116) IU/L Creatine Kinase 66 (26-308) U/L Creatine Kinase Index 0.8 (0.0-2.5) % CK-MB (CK-2) 0.50 (0.00-3.60) ng/mL Troponin I 0.000 (0.000-0.056) ng/mL NT-Pro-B Natriuret Pep 94 (0-125) pg/mL Total Protein 7.4 (6.4-8.2) g/dL Albumin 3.7 (3.4-5.0) g/dL Triglycerides (30-150) mg/dL Cholesterol (100-200) mg/dL LDL Cholesterol, Calc (0-100) mg/dL HDL Cholesterol (40-60) mg/dL Amylase 37 (25-115) U/L Lipase 67 L (73-393) U/L Vitamin B12 (193-986) pg/mL 12/28/19 12/28/19 12/28/19 Range/Units 10:50 16:00 16:00 WBC (4.0-10.2) K/uL RBC (4.33-5.41) M/uL Hgb (13.1-16.8) g/dL Hct (39.0-49.0) % MCV (84.0-98.0) fL MCH (28.2-33.3) pg MCHC (31.7-36.0) g/dL RDW (11.2-14.1) % Plt Count (150-350) K/uL Neut % (Auto) (45.0-80.0) % Lymph % (Auto) (10.0-50.0) % [place] % (Auto) (2.0-14.0) % Eos % (Auto) (0.0-5.0) % Baso % (Auto) (0.0-2.0) % Neut # (Auto) (1.40-7.00) K/uL Lymph # (Auto) (0.50-3.50) K/uL [place] # (Auto) (0.00-1.00) K/uL Eos # (Auto) (0.00-0.50) K/uL Baso # (Auto) (0.00-0.20) K/uL D-Dimer, Quantitative (0-400) ng/mL Sodium (136-145) mmol/L Potassium (3.5-5.1) mmol/L Chloride (98-107) mmol/L Carbon Dioxide (21.0-32.0) mmol/L BUN (7-18) mg/dL Creatinine (0.51-1.17) mg/dL Est Cr Clr Drug Dosing mL/min Estimated GFR (MDRD) mL/min Glucose (74-106) mg/dL Hemoglobin A1c (4.3-5.7) % Lactic Acid 3.2 H 2.1 H (0.4-2.0) mmol/L Uric Acid (2.6-7.2) mg/dL Calcium (8.5-10.1) mg/dL Total Bilirubin (0.2-1.0) mg/dL AST (15-37) U/L ALT (12-78) U/L Alkaline Phosphatase (46-116) IU/L Creatine Kinase 75 (26-308) U/L Creatine Kinase Index 0.7 (0.0-2.5) % CK-MB (CK-2) 0.50 (0.00-3.60) ng/mL Troponin I 0.000 (0.000-0.056) ng/mL NT-Pro-B Natriuret Pep (0-125) pg/mL Total Protein (6.4-8.2) g/dL Albumin (3.4-5.0) g/dL Triglycerides (30-150) mg/dL Cholesterol (100-200) mg/dL LDL Cholesterol, Calc (0-100) mg/dL HDL Cholesterol (40-60) mg/dL Amylase (25-115) U/L Lipase (73-393) U/L Vitamin B12 (193-986) pg/mL 0612/29/19 12/29/19 Range/Units 07:21 07:21 07:21 WBC 11.1 H (4.0-10.2) K/uL RBC 4.14 L (4.33-5.41) M/uL Hgb 12.9 L D (13.1-16.8) g/dL Hct 37.4 L (39.0-49.0) % MCV 90.3 (84.0-98.0) fL MCH 31.2 (28.2-33.3) pg MCHC 34.5 (31.7-36.0) g/dL RDW 12.8 (11.2-14.1) % Plt Count 242 (150-350) K/uL Neut % (Auto) 68.1 (45.0-80.0) % Lymph % (Auto) 21.0 (10.0-50.0) % [place] % (Auto) 10.1 (2.0-14.0) % Eos % (Auto) 0.6 (0.0-5.0) % Baso % (Auto) 0.2 (0.0-2.0) % Neut # (Auto) 7.58 H (1.40-7.00) K/uL Lymph # (Auto) 2.34 (0.50-3.50) K/uL [place] # (Auto) 1.12 H (0.00-1.00) K/uL Eos # (Auto) 0.07 (0.00-0.50) K/uL Baso # (Auto) 0.02 (0.00-0.20) K/uL D-Dimer, Quantitative (0-400) ng/mL Sodium 142 (136-145) mmol/L Potassium 3.8 (3.5-5.1) mmol/L Chloride 110 H (98-107) mmol/L Carbon Dioxide 23.6 (21.0-32.0) mmol/L BUN 10 (7-18) mg/dL Creatinine 0.78 (0.51-1.17) mg/dL Est Cr Clr Drug Dosing 93.31 mL/min Estimated GFR (MDRD) > 60 mL/min Glucose 102 (74-106) mg/dL Hemoglobin A1c 5.3 (4.3-5.7) % Lactic Acid (0.4-2.0) mmol/L Uric Acid (2.6-7.2) mg/dL Calcium 7.8 L (8.5-10.1) mg/dL Total Bilirubin 0.2 (0.2-1.0) mg/dL AST 15 (15-37) U/L ALT 33 (12-78) U/L Alkaline Phosphatase 64 (46-116) IU/L Creatine Kinase 46 (26-308) U/L Creatine Kinase Index 1.1 (0.0-2.5) % CK-MB (CK-2) 0.50 (0.00-3.60) ng/mL Troponin I 0.005 (0.000-0.056) ng/mL NT-Pro-B Natriuret Pep (0-125) pg/mL Total Protein 5.9 L (6.4-8.2) g/dL Albumin 2.7 L (3.4-5.0) g/dL Triglycerides 74 (30-150) mg/dL Cholesterol 166 (100-200) mg/dL LDL Cholesterol, Calc 107 H (0-100) mg/dL HDL Cholesterol 44 (40-60) mg/dL Amylase 33 (25-115) U/L Lipase 74 (73-393) U/L Vitamin B12 (193-986) pg/mL 12/29/19 12/29/19 Range/Units 07:21 07:21 WBC (4.0-10.2) K/uL RBC (4.33-5.41) M/uL Hgb (13.1-16.8) g/dL Hct (39.0-49.0) % MCV (84.0-98.0) fL MCH (28.2-33.3) pg MCHC (31.7-36.0) g/dL RDW (11.2-14.1) % Plt Count (150-350) K/uL Neut % (Auto) (45.0-80.0) % Lymph % (Auto) (10.0-50.0) % [place] % (Auto) (2.0-14.0) % Eos % (Auto) (0.0-5.0) % Baso % (Auto) (0.0-2.0) % Neut # (Auto) (1.40-7.00) K/uL Lymph # (Auto) (0.50-3.50) K/uL [place] # (Auto) (0.00-1.00) K/uL Eos # (Auto) (0.00-0.50) K/uL Baso # (Auto) (0.00-0.20) K/uL D-Dimer, Quantitative (0-400) ng/mL Sodium (136-145) mmol/L Potassium (3.5-5.1) mmol/L Chloride (98-107) mmol/L Carbon Dioxide (21.0-32.0) mmol/L BUN (7-18) mg/dL Creatinine (0.51-1.17) mg/dL Est Cr Clr Drug Dosing mL/min Estimated GFR (MDRD) mL/min Glucose (74-106) mg/dL Hemoglobin A1c (4.3-5.7) % Lactic Acid 1.7 (0.4-2.0) mmol/L Uric Acid (2.6-7.2) mg/dL Calcium (8.5-10.1) mg/dL Total Bilirubin (0.2-1.0) mg/dL AST (15-37) U/L ALT (12-78) U/L Alkaline Phosphatase (46-116) IU/L Creatine Kinase (26-308) U/L Creatine Kinase Index (0.0-2.5) % CK-MB (CK-2) (0.00-3.60) ng/mL Troponin I (0.000-0.056) ng/mL NT-Pro-B Natriuret Pep (0-125) pg/mL Total Protein (6.4-8.2) g/dL Albumin (3.4-5.0) g/dL Triglycerides (30-150) mg/dL Cholesterol (100-200) mg/dL LDL Cholesterol, Calc (0-100) mg/dL HDL Cholesterol (40-60) mg/dL Amylase (25-115) U/L Lipase (73-393) U/L Vitamin B12 325 (193-986) pg/mL Laboratory Tests 12/27/19 12/27/19 12/27/19 Range/Units 23:13 23:13 23:25 WBC 14.9 H (4.0-10.2) K/uL RBC 5.17 (4.33-5.41) M/uL Hgb 15.9 (13.1-16.8) g/dL Hct 46.2 (39.0-49.0) % MCV 89.4 (84.0-98.0) fL MCH 30.8 (28.2-33.3) pg MCHC 34.4 (31.7-36.0) g/dL RDW 13.2 (11.2-14.1) % Plt Count 301 (150-350) K/uL Neut % (Auto) 67.0 (45.0-80.0) % Lymph % (Auto) 21.4 (10.0-50.0) % [place] % (Auto) 9.3 (2.0-14.0) % Eos % (Auto) 2.0 (0.0-5.0) % Baso % (Auto) 0.3 (0.0-2.0) % Neut # (Auto) 9.97 H (1.40-7.00) K/uL Lymph # (Auto) 3.19 (0.50-3.50) K/uL [place] # (Auto) 1.39 H (0.00-1.00) K/uL Eos # (Auto) 0.30 (0.00-0.50) K/uL Baso # (Auto) 0.04 (0.00-0.20) K/uL D-Dimer, Quantitative (0-400) ng/mL Sodium 141 (136-145) mmol/L Potassium 3.9 (3.5-5.1) mmol/L Chloride 105 (98-107) mmol/L Carbon Dioxide 27.0 (21.0-32.0) mmol/L BUN 16 (7-18) mg/dL Creatinine 0.96 (0.51-1.17) mg/dL Est Cr Clr Drug Dosing 74.25 mL/min Estimated GFR (MDRD) > 60 mL/min Glucose 115 H (74-106) mg/dL Hemoglobin A1c (4.3-5.7) % Lactic Acid (0.4-2.0) mmol/L Uric Acid (2.6-7.2) mg/dL Calcium 9.1 (8.5-10.1) mg/dL Total Bilirubin 0.4 (0.2-1.0) mg/dL AST 19 (15-37) U/L ALT 56 (12-78) U/L Alkaline Phosphatase 93 (46-116) IU/L Creatine Kinase (26-308) U/L Creatine Kinase Index (0.0-2.5) % CK-MB (CK-2) (0.00-3.60) ng/mL Troponin I (0.000-0.056) ng/mL NT-Pro-B Natriuret Pep (0-125) pg/mL Total Protein 8.0 (6.4-8.2) g/dL Albumin 4.1 (3.4-5.0) g/dL Triglycerides (30-150) mg/dL Cholesterol (100-200) mg/dL LDL Cholesterol, Calc (0-100) mg/dL HDL Cholesterol (40-60) mg/dL Amylase (25-115) U/L Lipase (73-393) U/L Vitamin B12 (193-986) pg/mL Specimen Type Urinblad Urine Color Yellow Urine Appearance Clear Urine pH 6.0 (5.0-9.0) Ur Specific [place] >= 1.030 (1.005-1.030) Urine Protein Negative (NEGATIVE) mg/dL Urine Glucose (UA) Negative (NEGATIVE) mg/dL Urine Ketones Negative (NEGATIVE) mg/dL Urine Occult Blood Negative (NEGATIVE) Urine Nitrite Negative (NEGATIVE) Urine Bilirubin Negative (NEGATIVE) Urine Urobilinogen 0.2 (0.2-1.0) E.U./dL Ur Leukocyte Esterase Negative (NEGATIVE) Urine RBC Not seen /HPF Urine WBC 0-5 /HPF Ur Epithelial Cells Occasional /LPF Urine Bacteria Few (NONE TO FEW) /HPF Urine Mucus Moderate H (NEGATIVE) /LPF 12/28/19 12/28/19 12/28/19 Range/Units 10:50 10:50 10:50 WBC 11.1 H (4.0-10.2) K/uL RBC 4.95 (4.33-5.41) M/uL Hgb 15.3 (13.1-16.8) g/dL Hct 44.1 (39.0-49.0) % MCV 89.1 (84.0-98.0) fL MCH 30.9 (28.2-33.3) pg MCHC 34.7 (31.7-36.0) g/dL RDW 13.0 (11.2-14.1) % Plt Count 284 (150-350) K/uL Neut % (Auto) 93.5 H (45.0-80.0) % Lymph % (Auto) 5.7 L (10.0-50.0) % [place] % (Auto) 0.7 L (2.0-14.0) % Eos % (Auto) 0.0 (0.0-5.0) % Baso % (Auto) 0.1 (0.0-2.0) % Neut # (Auto) 10.37 H (1.40-7.00) K/uL Lymph # (Auto) 0.63 (0.50-3.50) K/uL [place] # (Auto) 0.08 (0.00-1.00) K/uL Eos # (Auto) 0.00 (0.00-0.50) K/uL Baso # (Auto) 0.01 (0.00-0.20) K/uL D-Dimer, Quantitative < 100 (0-400) ng/mL Sodium 140 (136-145) mmol/L Potassium 4.1 (3.5-5.1) mmol/L Chloride 106 (98-107) mmol/L Carbon Dioxide 22.4 (21.0-32.0) mmol/L BUN 12 (7-18) mg/dL Creatinine 0.78 (0.51-1.17) mg/dL Est Cr Clr Drug Dosing 93.31 mL/min Estimated GFR (MDRD) > 60 mL/min Glucose 166 H (74-106) mg/dL Hemoglobin A1c (4.3-5.7) % Lactic Acid (0.4-2.0) mmol/L Uric Acid 5.1 (2.6-7.2) mg/dL Calcium 8.6 (8.5-10.1) mg/dL Total Bilirubin 0.5 (0.2-1.0) mg/dL AST 16 (15-37) U/L ALT 48 (12-78) U/L Alkaline Phosphatase 84 (46-116) IU/L Creatine Kinase 66 (26-308) U/L Creatine Kinase Index 0.8 (0.0-2.5) % CK-MB (CK-2) 0.50 (0.00-3.60) ng/mL Troponin I 0.000 (0.000-0.056) ng/mL NT-Pro-B Natriuret Pep 94 (0-125) pg/mL Total Protein 7.4 (6.4-8.2) g/dL Albumin 3.7 (3.4-5.0) g/dL Triglycerides (30-150) mg/dL Cholesterol (100-200) mg/dL LDL Cholesterol, Calc (0-100) mg/dL HDL Cholesterol (40-60) mg/dL Amylase 37 (25-115) U/L Lipase 67 L (73-393) U/L Vitamin B12 (193-986) pg/mL Specimen Type Urine Color Urine Appearance Urine pH (5.0-9.0) Ur Specific [place] (1.005-1.030) Urine Protein (NEGATIVE) mg/dL Urine Glucose (UA) (NEGATIVE) mg/dL Urine Ketones (NEGATIVE) mg/dL Urine Occult Blood (NEGATIVE) Urine Nitrite (NEGATIVE) Urine Bilirubin (NEGATIVE) Urine Urobilinogen (0.2-1.0) E.U./dL Ur Leukocyte Esterase (NEGATIVE) Urine RBC /HPF Urine WBC /HPF Ur Epithelial Cells /LPF Urine Bacteria (NONE TO FEW) /HPF Urine Mucus (NEGATIVE) /LPF 12/28/19 12/28/19 12/28/19 Range/Units 10:50 16:00 16:00 WBC (4.0-10.2) K/uL RBC (4.33-5.41) M/uL Hgb (13.1-16.8) g/dL Hct (39.0-49.0) % MCV (84.0-98.0) fL MCH (28.2-33.3) pg MCHC (31.7-36.0) g/dL RDW (11.2-14.1) % Plt Count (150-350) K/uL Neut % (Auto) (45.0-80.0) % Lymph % (Auto) (10.0-50.0) % [place] % (Auto) (2.0-14.0) % Eos % (Auto) (0.0-5.0) % Baso % (Auto) (0.0-2.0) % Neut # (Auto) (1.40-7.00) K/uL Lymph # (Auto) (0.50-3.50) K/uL [place] # (Auto) (0.00-1.00) K/uL Eos # (Auto) (0.00-0.50) K/uL Baso # (Auto) (0.00-0.20) K/uL D-Dimer, Quantitative (0-400) ng/mL Sodium (136-145) mmol/L Potassium (3.5-5.1) mmol/L Chloride (98-107) mmol/L Carbon Dioxide (21.0-32.0) mmol/L BUN (7-18) mg/dL Creatinine (0.51-1.17) mg/dL Est Cr Clr Drug Dosing mL/min Estimated GFR (MDRD) mL/min Glucose (74-106) mg/dL Hemoglobin A1c (4.3-5.7) % Lactic Acid 3.2 H 2.1 H (0.4-2.0) mmol/L Uric Acid (2.6-7.2) mg/dL Calcium (8.5-10.1) mg/dL Total Bilirubin (0.2-1.0) mg/dL AST (15-37) U/L ALT (12-78) U/L Alkaline Phosphatase (46-116) IU/L Creatine Kinase 75 (26-308) U/L Creatine Kinase Index 0.7 (0.0-2.5) % CK-MB (CK-2) 0.50 (0.00-3.60) ng/mL Troponin I 0.000 (0.000-0.056) ng/mL NT-Pro-B Natriuret Pep (0-125) pg/mL Total Protein (6.4-8.2) g/dL Albumin (3.4-5.0) g/dL Triglycerides (30-150) mg/dL Cholesterol (100-200) mg/dL LDL Cholesterol, Calc (0-100) mg/dL HDL Cholesterol (40-60) mg/dL Amylase (25-115) U/L Lipase (73-393) U/L Vitamin B12 (193-986) pg/mL Specimen Type Urine Color Urine Appearance Urine pH (5.0-9.0) Ur Specific [place] (1.005-1.030) Urine Protein (NEGATIVE) mg/dL Urine Glucose (UA) (NEGATIVE) mg/dL Urine Ketones (NEGATIVE) mg/dL Urine Occult Blood (NEGATIVE) Urine Nitrite (NEGATIVE) Urine Bilirubin (NEGATIVE) Urine Urobilinogen (0.2-1.0) E.U./dL Ur Leukocyte Esterase (NEGATIVE) Urine RBC /HPF Urine WBC /HPF Ur Epithelial Cells /LPF Urine Bacteria (NONE TO FEW) /HPF Urine Mucus (NEGATIVE) /LPF 12/29/19 12/29/19 12/29/19 Range/Units 07:21 07:21 07:21 WBC 11.1 H (4.0-10.2) K/uL RBC 4.14 L (4.33-5.41) M/uL Hgb 12.9 L D (13.1-16.8) g/dL Hct 37.4 L (39.0-49.0) % MCV 90.3 (84.0-98.0) fL MCH 31.2 (28.2-33.3) pg MCHC 34.5 (31.7-36.0) g/dL RDW 12.8 (11.2-14.1) % Plt Count 242 (150-350) K/uL Neut % (Auto) 68.1 (45.0-80.0) % Lymph % (Auto) 21.0 (10.0-50.0) % [place] % (Auto) 10.1 (2.0-14.0) % Eos % (Auto) 0.6 (0.0-5.0) % Baso % (Auto) 0.2 (0.0-2.0) % Neut # (Auto) 7.58 H (1.40-7.00) K/uL Lymph # (Auto) 2.34 (0.50-3.50) K/uL [place] # (Auto) 1.12 H (0.00-1.00) K/uL Eos # (Auto) 0.07 (0.00-0.50) K/uL Baso # (Auto) 0.02 (0.00-0.20) K/uL D-Dimer, Quantitative (0-400) ng/mL Sodium 142 (136-145) mmol/L Potassium 3.8 (3.5-5.1) mmol/L Chloride 110 H (98-107) mmol/L Carbon Dioxide 23.6 (21.0-32.0) mmol/L BUN 10 (7-18) mg/dL Creatinine 0.78 (0.51-1.17) mg/dL Est Cr Clr Drug Dosing 93.31 mL/min Estimated GFR (MDRD) > 60 mL/min Glucose 102 (74-106) mg/dL Hemoglobin A1c 5.3 (4.3-5.7) % Lactic Acid (0.4-2.0) mmol/L Uric Acid (2.6-7.2) mg/dL Calcium 7.8 L (8.5-10.1) mg/dL Total Bilirubin 0.2 (0.2-1.0) mg/dL AST 15 (15-37) U/L ALT 33 (12-78) U/L Alkaline Phosphatase 64 (46-116) IU/L Creatine Kinase 46 (26-308) U/L Creatine Kinase Index 1.1 (0.0-2.5) % CK-MB (CK-2) 0.50 (0.00-3.60) ng/mL Troponin I 0.005 (0.000-0.056) ng/mL NT-Pro-B Natriuret Pep (0-125) pg/mL Total Protein 5.9 L (6.4-8.2) g/dL Albumin 2.7 L (3.4-5.0) g/dL Triglycerides 74 (30-150) mg/dL Cholesterol 166 (100-200) mg/dL LDL Cholesterol, Calc 107 H (0-100) mg/dL HDL Cholesterol 44 (40-60) mg/dL Amylase 33 (25-115) U/L Lipase 74 (73-393) U/L Vitamin B12 (193-986) pg/mL Specimen Type Urine Color Urine Appearance Urine pH (5.0-9.0) Ur Specific [place] (1.005-1.030) Urine Protein (NEGATIVE) mg/dL Urine Glucose (UA) (NEGATIVE) mg/dL Urine Ketones (NEGATIVE) mg/dL Urine Occult Blood (NEGATIVE) Urine Nitrite (NEGATIVE) Urine Bilirubin (NEGATIVE) Urine Urobilinogen (0.2-1.0) E.U./dL Ur Leukocyte Esterase (NEGATIVE) Urine RBC /HPF Urine WBC /HPF Ur Epithelial Cells /LPF Urine Bacteria (NONE TO FEW) /HPF Urine Mucus (NEGATIVE) /LPF 12/29/19 12/29/19 Range/Units 07:21 07:21 WBC (4.0-10.2) K/uL RBC (4.33-5.41) M/uL Hgb (13.1-16.8) g/dL Hct (39.0-49.0) % MCV (84.0-98.0) fL MCH (28.2-33.3) pg MCHC (31.7-36.0) g/dL RDW (11.2-14.1) % Plt Count (150-350) K/uL Neut % (Auto) (45.0-80.0) % Lymph % (Auto) (10.0-50.0) % [place] % (Auto) (2.0-14.0) % Eos % (Auto) (0.0-5.0) % Baso % (Auto) (0.0-2.0) % Neut # (Auto) (1.40-7.00) K/uL Lymph # (Auto) (0.50-3.50) K/uL [place] # (Auto) (0.00-1.00) K/uL Eos # (Auto) (0.00-0.50) K/uL Baso # (Auto) (0.00-0.20) K/uL D-Dimer, Quantitative (0-400) ng/mL Sodium (136-145) mmol/L Potassium (3.5-5.1) mmol/L Chloride (98-107) mmol/L Carbon Dioxide (21.0-32.0) mmol/L BUN (7-18) mg/dL Creatinine (0.51-1.17) mg/dL Est Cr Clr Drug Dosing mL/min Estimated GFR (MDRD) mL/min Glucose (74-106) mg/dL Hemoglobin A1c (4.3-5.7) % Lactic Acid 1.7 (0.4-2.0) mmol/L Uric Acid (2.6-7.2) mg/dL Calcium (8.5-10.1) mg/dL Total Bilirubin (0.2-1.0) mg/dL AST (15-37) U/L ALT (12-78) U/L Alkaline Phosphatase (46-116) IU/L Creatine Kinase (26-308) U/L Creatine Kinase Index (0.0-2.5) % CK-MB (CK-2) (0.00-3.60) ng/mL Troponin I (0.000-0.056) ng/mL NT-Pro-B Natriuret Pep (0-125) pg/mL Total Protein (6.4-8.2) g/dL Albumin (3.4-5.0) g/dL Triglycerides (30-150) mg/dL Cholesterol (100-200) mg/dL LDL Cholesterol, Calc (0-100) mg/dL HDL Cholesterol (40-60) mg/dL Amylase (25-115) U/L Lipase (73-393) U/L Vitamin B12 325 (193-986) pg/mL Specimen Type Urine Color Urine Appearance Urine pH (5.0-9.0) Ur Specific [place] (1.005-1.030) Urine Protein (NEGATIVE) mg/dL Urine Glucose (UA) (NEGATIVE) mg/dL Urine Ketones (NEGATIVE) mg/dL Urine Occult Blood (NEGATIVE) Urine Nitrite (NEGATIVE) Urine Bilirubin (NEGATIVE) Urine Urobilinogen (0.2-1.0) E.U./dL Ur Leukocyte Esterase (NEGATIVE) Urine RBC /HPF Urine WBC /HPF Ur Epithelial Cells /LPF Urine Bacteria (NONE TO FEW) /HPF Urine Mucus (NEGATIVE) /LPF [facility] Results - Last 24 hrs: Microbiology 12/28/19 10:50 Urine Culture - Preliminary Urine, Clean Catch No Growth Med Orders - Current: Current Medications Amlodipine Besylate (Norvasc) 5 mg PO DAILY [facility] Last Admin: 12/29/19 09:12 Dose: 5 mg Documented by: Diazepam (Valium.) 10 mg PO Q6H [facility] Last Admin: 12/29/19 07:58 Dose: 10 mg Documented by: Hydromorphone HCl (Dilaudid) 0.5 mg IVPUSH Q6H PRN PRN Reason: Pain (severe 7-10) Sodium Chloride (Normal Saline) 1,000 mls @ 125 mls/hr IV ASDIRECTED [facility] Last Admin: 12/29/19 03:13 Dose: 125 mls/hr Documented by: Ceftriaxone Sodium 1 gm/ (Sodium Chloride) 100 mls @ 200 mls/hr IV Q12H [facility] Last Admin: 12/29/19 02:22 Dose: 200 mls/hr Documented by: Ketorolac Tromethamine (Toradol) 15 mg IVPUSH Q6H [facility] Last Admin: 12/29/19 07:58 Dose: 15 mg Documented by: Ondansetron HCl (Zofran) 4 mg IVPUSH Q6H PRN PRN Reason: Nausea/Vomiting Sodium Chloride (Saline Flush) 10 ml FLUSH ASDIRECTED PRN PRN Reason: Keep Vein Open Last Admin: 12/29/19 07:59 Dose: 10 ml Documented by: Tramadol HCl (Ultram) 50 mg PO Q6H PRN PRN Reason: Breakthrough Pain Discontinued Medications Diazepam (Valium.) 5 mg PO ONETIME ONE Stop: 12/28/19 00:28 Last Admin: 12/28/19 00:43 Dose: 5 mg Documented by: Diazepam (Valium.) 5 mg PO TID PRN PRN Reason: Spasms Last Admin: 12/28/19 08:27 Dose: 5 mg Documented by: Famotidine (Pepcid) 40 mg IVPUSH ONETIME ONE Stop: 12/28/19 13:03 Last Admin: 12/28/19 13:24 Dose: 40 mg Documented by: Fentanyl (Sublimaze) 100 mcg IVPUSH ONETIME ONE Stop: 12/27/19 23:10 Last Admin: 12/27/19 23:27 Dose: 100 mcg Documented by: Hydromorphone HCl (Dilaudid) 1 mg IVPUSH ONETIME ONE Stop: 12/28/19 00:09 Last Admin: 12/28/19 00:47 Dose: Not Given Documented by: Sodium Chloride (Normal Saline) 1,000 mls @ 999 mls/hr IV .BOLUS ONE Stop: 12/28/19 00:38 Last Admin: 12/27/19 23:42 Dose: 999 mls/hr Documented by: Iopamidol (Isovue-370 (76%)) 100 ml IVPUSH ONETIME ONE Stop: 12/28/19 13:01 Ketorolac Tromethamine (Toradol) 30 mg IVPUSH ONETIME ONE Stop: 12/27/19 23:09 Last Admin: 12/27/19 23:26 Dose: 30 mg Documented by: Methylprednisolone Sodium Succinate (Solu-Medrol) 125 mg IVPUSH ONETIME ONE Stop: 12/28/19 02:06 Last Admin: 12/28/19 02:23 Dose: 125 mg Documented by: Morphine Sulfate (Morphine) 4 mg IVPUSH Q1H PRN PRN Reason: Pain Last Admin: 12/28/19 08:28 Dose: 4 mg Documented by: Ondansetron HCl (Zofran) 4 mg IVPUSH ONETIME ONE Stop: 12/27/19 23:10 Last Admin: 12/27/19 23:25 Dose: 4 mg Documented by: - Exam Quality Assessment: Reports: Supplemental Oxygen. Denies: Central Line/PICC, Urine Catheter, DVT Prophylaxis, Skin Breakdown, Restraints General: Reports: Alert, Oriented, Cooperative, No Acute Distress HEENT: Reports: Pupils Equal, Pupils Reactive, EOMI, Mucous Membr. Moist/[place]. Denies: Scleral Icterus Neck: Reports: Supple, Trachea Midline, No JVD, No Thyromegaly. Denies: Lymphadenopathy Lungs: Reports: Clear to Auscultation, Normal Respiratory Effort. Denies: Rub Cardiovascular: Reports: Regular Rate, Regular Rhythm, No Murmurs. Denies: Gallops, Rubs GI/Abdominal Exam: Normal Bowel Sounds, Soft, Non-Tender, No Organomegaly, No Distention, No Abnormal Bruit, No Mass, Other (Obese). No: Guarding (Male) Exam: Deferred Rectal (Males) Exam: Deferred Back Exam: Reports: Decreased Range of Motion (Mild but improved), Muscle Spasm (Mild bilateral upper lumbar with minimal localized palpation pain in this area). Denies: CVA Tenderness (L), CVA Tenderness (R) Extremities: Normal Inspection, Normal Range of Motion, Non-Tender, No Pedal Edema, Normal Capillary Refill. No: Kiara's Sign Skin: Reports: Warm, Dry, Intact. Denies: Ecchymosis Neurological: Reports: No New Focal Deficit Psy/Mental Status: Reports: Alert, Normal Affect, Normal Mood. Denies: Agitated, Hallucinations, Withdrawal Symptoms EKG INTERPRETATION EKG Date: 12/29/19 Time: 07:46 Rhythm: NSR Rate (Beats/Min): 68 [place]: Normal (Left) P-Wave: Present QRS: Wide (0.10 seconds with mild repolarization changes) ST-T: Normal (With resolution of previous T-wave inversion in lead 3) QT: Normal WA/PQ Interval: 0.14 seconds with borderline short WA interval, however no delta waves noted Comparison: Change From Previous EKG (As above since 12/28/19) EKG Interpretation Comments: 1. No acute ischemic changes 2. Short WA interval 3. Repolarization changes
== END 2019-12-29 11:15 | disposition home or self-care (01) ==
LOC: LL.ED 23:02 → LL.MS 12-28 00:28
PROVIDERS: ADMIT Emergency Medicine; ATTEND Emergency Medicine
DX: G89.29 Other chronic pain (principal); M54.5 Low back pain; R07.89 Other chest pain; R10.9 Unspecified abdominal pain; E03.9 Hypothyroidism, unspecified; R79.89 Other specified abnormal findings of blood chemistry; M19.91 Primary osteoarthritis, unspecified site; K21.9 Gastro-esophageal reflux disease without esophagitis; I10 Essential (primary) hypertension; E78.5 Hyperlipidemia, unspecified; E83.51 Hypocalcemia; I77.4 Celiac artery compression syndrome; Z88.8 Allergy status to other drugs, medicaments and biological substances; Z71.6 Tobacco abuse counseling
CPT/HCPCS: 36415; 74022; 74174; 74176; 80053; 80061; 81001; 82150; 82550; 82553; 82607; 83036; 83605; 83690; 83880; 84484; 84550; 85025; 85379; 87086; 93005; 96361; 96365; 96366; 96374; 96375; 96376; 99285-25; A9270-GY; G0378; J0696; J1885; J2270; J2405; J2930; J3010; J3490; J7030; J7050; Q9967

== ENCOUNTER 2021-12-20 23:53 | Emergency (ER) | payer BC, OTHER ==
[2021-12-21] MEDS: Sodium Chloride 0.9% 1,000 ML IV ONE (00:08)
[2021-12-21] MEDS: Ketorolac 30 MG/ML SDV IVPUSH ONE (00:08)
[2021-12-21 00:17] VITALS: PULSE 90
[2021-12-21 00:50] VITALS: BP 142/92
[2021-12-21 01:02] LABS: ANION GAP 10.5 meq/L (7-15); CHLORIDE,CL 105 mmol/L (98-107); ESTIMATED GFR 88 mL/min (>=60); SODIUM,NA 142 mmol/L (136-145)
== END 2021-12-21 01:20 | disposition home or self-care (01) ==
LOC: LL.ED 23:53
DX: N20.1 Calculus of ureter (principal); Z88.5 Allergy status to narcotic agent
CPT/HCPCS: 36415; 74150; 80053; 85025; 96361; 96374; 99284; J1885; J7030